=== PATIENT | female | born 1970 | race Caucasian/White ===

== ENCOUNTER 2020-02-03 07:17 | Emergency (ER) | payer OTHER ==
[2020-02-03] MEDS ORDERED: PROMETHAZINE INJ 25 MG/ML AMP ONE (07:50)
[2020-02-03] MEDS ORDERED: PANTOPRAZOLE 40 MG INJ ONE (07:50)
[2020-02-03 08:28] LABS: Absolute Lymphocytes (CBC) 2.6 K/uL (0.7-4.9); Basophils % 0.4 % (0-1.3); Hematocrit 46.8 % (36.0-45.0); Lymphocytes % 28.5 % (15.3-44.8); MPV 10.1 fL (7.6-11.3); Protime INR 1.03; RBC Red Blood Cell Count 5.32 M/uL (3.86-4.86)
[2020-02-03 08:38] LABS: ALT/SGPT 25 U/L (12-78); AST/SGOT 20 U/L (15-37); Albumin 3.5 g/dL (3.4-5.0); Alkaline Phosphatase 92 U/L (45-117); BUN Blood Urea Nitrogen 6 mg/dL (7-18); Bicarbonate 27 mmol/L (21-32); Bilirubin Direct 0.2 mg/dL (0-0.2); Bilirubin Total 0.7 mg/dL (0.2-1.0); Glucose Level 80 mg/dL (74-106); Lipase 99 U/L (73-393); Potassium 3.6 mmol/L (3.5-5.1); Protein, Total 6.9 g/dL (6.4-8.2); Sodium Level 141 mmol/L (136-145)
[2020-02-03] MEDS ORDERED: MEPERIDINE HCL 25 MG/ML SYR ONE ×2 (08:40→11:49)
[2020-02-03] MEDS ORDERED: PANTOPRAZOLE INJ 80 MG in NA CHLORIDE 0.9% 250 ML IV SCH (09:00)
--- NOTE | 2020-02-03 09:54 | RAD REPORT ---
EXAM DESCRIPTION: CT - Abdomen Pelvis W Contrast - 02/03/2020 9:17 am CLINICAL HISTORY: ABD PAIN COMPARISON: No comparisons TECHNIQUE: Biphasic, helical CT imaging of the abdomen and pelvis was performed following 100 ml non -ionic IV contrast. No oral contrast. All CT scans are performed using dose optimization technique as appropriate and may include automated exposure control or mA/KV adjustment according to patient size. FINDINGS: No suspicious findings in the lung bases. The liver, spleen, and pancreas show no suspicious findings. Gallbladder is absent. Biliary tree is m ildly dilated, not outside the range for a post cholecystectomy patient. Duct stones can be occult. C orrelation can be made with any biliary obstructive clinical or laboratory findings. Symmetric renal function is seen with no hydronephrosis or suspicious renal mass. No pyelonephritis o r acute parenchymal process. No bladder abnormalities. No adrenal abnormalities. No dilation of the stomach. No mass or wall thickening of the stomach confirmed. There is dilatation and tortuosity of the jejunum loops fold superiorly for the gastric bypass anastomosis. Loops extend through eventration or herniation at the anterior midline diaphragm. There is a 2 centimeter air and fluid collection in the proximal portion of the jejunal limb of the bypass. Small collection is suspi cious for contained perforated ulcer. The proximal jejunal loops show wall thickening and edema. Ther e is stranding in the adjacent fat. No distant free air. No pneumatosis. A small periumbilical hernia is present containing only fat. Small amount of free fluid is present in the dependent portion of the pelvis. Numerous surgical clips are present in the adnexa. Small uter us or uterine remnant identified. No acute colon finding identifiable. No suspicious bony findings. Advanced for age degenerative change in the lower lumbar spine noted. IMPRESSION: Suspected contained perforated ulcer of the proximal portion of the jejunal limb of the gastric bypass. Multiple loops of the bypass limb show wall thickening and edema. No abscess or distant free air. Status post cholecystectomy with biliary tree dilatation. The dilatation is within range normal for a post cholecystectomy patient.
--- NOTE | 2020-02-03 10:25 | EDPHYS ---
Physician Documentation [facility] Name: Carolyn Motley Age: 50 yrs Sex: Female : 1970 Arrival Date: 02/03/2020 Time: 07:19 Bed 20 Private MD: ED Physician Troy Villagomez HPI: 02/02 07:33 This 50 yrs old Female presents to ER via EMS with complaints of Abdominal rn Pain, vomiting dark blood. 07:33 The patient presents to the emergency department vomiting blood, a small amount, coffee rn grounds in nature, with multiple such episodes. Onset: The symptoms/episode began/occurred last night. Abdominal pain: described as achy, crampy, located in the epigastric area, that does not radiate. Modifying factors: The symptoms are alleviated by nothing, the symptoms are aggravated by movement, pressure. Associated signs and symptoms: Pertinent positives: vomiting, Pertinent negatives: dizziness at rest, dizziness when standing, fever, shortness of breath. Severity of symptoms: At their worst the symptoms were moderate in the emergency department the symptoms are unchanged. The patient has experienced similar episodes in the past. The patient has not recently seen a physician. 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 - Social history:: Smoking status: Patient reports the use of cigarette tobacco products, smokes one-half pack cigarettes per day. - Family history:: not pertinent. - Hospitalizations: : No recent hospitalization is reported. ROS: 07:33 Constitutional: Negative for fever, chills, and weight loss, Eyes: Negative for injury, rn pain, redness, and discharge, Neck: Negative for injury, pain, and swelling, Cardiovascular: Negative for chest pain, palpitations, and edema, Respiratory: Negative for shortness of breath, cough, wheezing, and pleuritic chest pain, Abdomen/GI: + epigastric abd pain and nausea/vomiting Back: Negative for injury and pain, : Negative for injury, bleeding, discharge, and swelling, MS/Extremity: Negative for injury and deformity, Skin: Negative for injury, rash, and discoloration, Neuro: Negative for headache, weakness, numbness, tingling, and seizure. Exam: 07:33 Constitutional: This is a well developed, well nourished patient who is awake, alert, rn and in no acute distress. + attempting to vomit into emesis bag. Head/Face: Normocephalic, atraumatic. ENT: MMM Cardiovascular: Regular rate and rhythm. No pulse deficits. Respiratory: No increased work of breathing, no retractions or nasal flaring. Abdomen/GI: soft, + tender epigastrium, no rebound or peritoneal signs Skin: Warm, dry MS/ Extremity: Pulses equal, no cyanosis. Neuro: Awake and alert, GCS 15 Vital Signs: 07:19 BP 131 / 105; Pulse 82; Resp 17; Temp 98.5; Pulse Ox 100% ; Weight 62.6 kg; Height 5 iw ft. 3 in. (160.02 cm); Pain 10/10; 08:15 BP 136 / 93; Pulse 69; Resp 16; Pulse Ox 99% ; rb3 09:15 BP 116 / 85; Pulse 68; Resp 17; Pulse Ox 99% ; rb3 10:15 BP 123 / 81; Pulse 73; Resp 17; Pulse Ox 100% ; rb3 11:15 BP 117 / 80; Pulse 66; Resp 17; Pulse Ox 99% ; rb3 12:15 BP 129 / 86; Pulse 86; Resp 16; Pulse Ox 100% ; rb3 07:19 Body Mass Index 24.45 (62.60 kg, 160.02 cm) iw MDM: 07:20 Patient medically screened. rn 09:57 ED course: Consulted with Dr. barrera, requests transfer to [place] given gastric rn bypass, and hematemesis that will also require GI which we do not have. Pt stable. Abx ordered, NPO.. 10:23 Differential diagnosis: gastritis, perforated gastric ulcer, UGIB, hematemesis. Data rn reviewed: vital signs, nurses notes, lab test result(s), radiologic studies, CT scan, and as a result, I will admit patient. Counseling: I had a detailed discussion with the patient and/or guardian regarding: the historical points, exam findings, and any diagnostic results supporting the discharge/admit diagnosis, lab results, radiology results, the need to transfer to another facility, for higher level of care, [facility] does not immediately have the required specialist. Response to treatment: the patient's symptoms have mildly improved after treatment, and as a result, I will admit patient. ED course: Accepted for transfer to [facility] for GI and surgical evaluation of contained perforated gastric ulcer involving gastric bypass. . 02/02 07:31 Order name: Basic Metabolic Panel; Complete Time: 08:39 rn 02/02 07:31 Order name: CBC with Diff; Complete Time: 08:39 rn 02/02 07:31 Order name: Hepatic Function; Complete Time: 08:39 rn 02/02 07:31 Order name: Lipase; Complete Time: 08:39 rn 02/02 07:31 Order name: Protime (+inr); Complete Time: 08:39 rn 02/02 07:31 Order name: Ptt, Activated; Complete Time: 08:39 rn 02/02 07:31 Order name: IV Saline Lock; Complete Time: 07:33 rn 02/02 07:31 Order name: Labs collected and sent; Complete Time: 07:33 rn 02/02 07:31 Order name: CT Abd/Pelvis - IV Contrast Only; Complete Time: 09:56 rn 02/02 10:16 Order name: NPO; Complete Time: 10:36 rn Administered Medications: 07:40 Drug: ProTONIX 40 mg Route: IVP; Site: right forearm; rb3 07:55 Follow up: Response: No adverse reaction rb3 07:40 Drug: Phenergan 12.5 mg Route: IVP; Site: right forearm; rb3 07:55 Follow up: Response: No adverse reaction rb3 08:30 Drug: Demerol 25 mg Route: IVP; Site: right forearm; rb3 08:45 Follow up: Response: No adverse reaction; Pain is decreased rb3 09:04 Drug: ProTONIX 8 mg/hr Route: IV; Rate: 25 ml/hr; Site: right forearm; rb3 10:35 Drug: Zosyn 3.375 grams Route: IVPB; Infused Over: 60 mins; Site: right antecubital; rb3 11:35 Follow up: IV Status: Completed infusion iw Disposition: 02/03/20 10:25 Transfer ordered to [facility]. Diagnosis are Chronic or unspecified gastric ulcer with perforation, Chronic or unspecified gastric ulcer with hemorrhage. - Reason for transfer: Higher level of care. - Accepting physician is Dr. Hollingsworth. - Condition is Stable. - Problem is new. - Symptoms have improved. Signatures: Dispatcher [employer] EDAmanda Mckay RN RN Troy Marie MD MD rn Botello, Elizabeth eb Barber, Rebecca RN RN rb3 Corrections: (The following items were deleted from the chart) 10:43 10:25 02/03/2020 10:25 Transfer ordered to [facility]. eb Diagnosis is Chronic or unspecified gastric ulcer with perforation; Chronic or unspecified gastric ulcer with hemorrhage. Reason for transfer: Higher level of care. Accepting physician is . Condition is Stable. Problem is new. Symptoms have improved. rn 12:21 10:43 02/03/2020 10:25 Transfer ordered to [facility]. rb3 Diagnosis is Chronic or unspecified gastric ulcer with perforation; Chronic or unspecified gastric ulcer with hemorrhage. Reason for transfer: Higher level of care. Accepting physician is Dr. Hollingsworth. Condition is Stable. Problem is new. Symptoms have improved. eb
--- NOTE | 2020-02-03 10:25 | ER ---
Nurse's Notes [facility] Name: Carolyn Motley Age: 50 yrs Sex: Female : 1970 Arrival Date: 02/03/2020 Time: 07:19 Bed 20 Private MD: Diagnosis: Chronic or unspecified gastric ulcer with perforation;Chronic or unspecified gastric ulcer with hemorrhage Presentation: 02/02 07:19 Chief complaint: EMS states: Pt. c/o abdominal pain, vomiting blood. Had a gastric rb3 bypass done in the past and got an ulcer and had to have a couple revisions. BP 148/90, P 86, O2 98%, R 16. Coronavirus screen: nausea, vomiting. Ebola Screen: Patient denies travel to an Ebola-affected area in the 21 days before illness onset. 07:19 Method Of Arrival: EMS: [facility] rb3 07:19 Initial Sepsis Screen: Does the patient meet any 2 criteria? No. Patient's initial iw sepsis screen is negative. Does the patient have a suspected source of infection? Yes: Acute abdominal pain. Risk Assessment: Do you want to hurt yourself or someone else? Patient reports no desire to harm self or others. Onset of symptoms was February 03, 2020. 07:19 Acuity: MED 3 iw Triage Assessment: 07:19 General: Appears uncomfortable, Behavior is calm, cooperative, Denies fever. Pain: iw Complains of pain in left upper quadrant Pain currently is 10 out of 10 on a pain scale. Pain began last night. Neuro: Level of Consciousness is awake, alert, obeys commands, Oriented to person, place, time, situation. Cardiovascular: Patient's skin is warm and dry. Respiratory: Airway is patent Respiratory effort is even, unlabored, Respiratory pattern is regular, symmetrical. GI: Reports nausea, vomiting, since last ngiht. : No signs and/or symptoms were reported regarding the genitourinary system. 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 - Social history:: Smoking status: Patient reports the use of cigarette tobacco products, smokes one-half pack cigarettes per day. - Family history:: not pertinent. - Hospitalizations: : No recent hospitalization is reported. Screenin:19 Abuse screen: Denies threats or abuse. Nutritional screening: No deficits noted. rb3 Tuberculosis screening: No symptoms or risk factors identified. Fall Risk None identified. Assessment: 07:19 General: See triage assessment. rb3 07:19 GI: Abd is soft Abdomen is tender to palpation in left upper quadrant. rb3 08:18 Reassessment: Called pharmacy to check on status for the Protonix drip. They have not rb3 mixed it yet but know that it is still needed. 09:15 Reassessment: Patient appears in no apparent distress at this time. Patient and/or rb3 family updated on plan of care and expected duration. Pain level reassessed. Patient is alert, oriented x 3, equal unlabored respirations, skin warm/dry/pink. Patient states feeling better. 10:15 Reassessment: Patient appears in no apparent distress at this time. No changes from rb3 previously documented assessment. 10:28 Reassessment: Pt. was asked to not drink or eat anything due to not knowing what the [facility] transfer facility had planned once she arrived there. Pt verbalized understanding. 10:50 Reassessment: Tried to call report, unable to give report at this time. They aren't rb3 sure who is taking the pt. and they will call me back. 11:06 Reassessment: Gave report to Quinn Echavarria at [facility]. Information from the [facility] was rb3 given, all questions asked and answered. 12:00 Reassessment: Patient appears in no apparent distress at this time. Patient and/or rb3 family updated on plan of care and expected duration. Pain level reassessed. Patient is alert, oriented x 3, equal unlabored respirations, skin warm/dry/pink. 12:15 Reassessment: Gave report to EMS. Information from the [facility] was given. All questions rb3 asked and answered. Vital Signs: 07:19 BP 131 / 105; Pulse 82; Resp 17; Temp 98.5; Pulse Ox 100% ; Weight 62.6 kg; Height 5 iw ft. 3 in. (160.02 cm); Pain 10/10; 08:15 BP 136 / 93; Pulse 69; Resp 16; Pulse Ox 99% ; rb3 09:15 BP 116 / 85; Pulse 68; Resp 17; Pulse Ox 99% ; rb3 10:15 BP 123 / 81; Pulse 73; Resp 17; Pulse Ox 100% ; rb3 11:15 BP 117 / 80; Pulse 66; Resp 17; Pulse Ox 99% ; rb3 12:15 BP 129 / 86; Pulse 86; Resp 16; Pulse Ox 100% ; rb3 07:19 Body Mass Index 24.45 (62.60 kg, 160.02 cm) iw ED Course: 07:19 Patient arrived in ED. rb3 07:19 Arm band placed on left wrist. iw 07:19 Patient has correct armband on for positive identification. Bed in low position. Call rb3 light in reach. Side rails up X 1. Pulse ox on. NIBP on. Warm blanket given. Pillow given. 07:20 Troy Villagomez MD is Attending Physician. rn 07:23 Inserted saline lock: 20 gauge in right forearm, using aseptic technique. Blood ds4 collected. 07:27 Amanda Parks, QUINN is Primary Nurse. iw 07:29 Triage completed. iw 09:18 CT Abd/Pelvis - IV Contrast Only In Process Unspecified. EDMS 10:06 initiated a transfer with Georgina from the [facility] Transfer [facility]. eb 10:20 connected the general surgeon aeronautical engineer for [facility] with Dr. Villagomez for patient eb transfer consultation. 10:31 connected the bariatric surgeon aeronautical engineer for [facility] with Dr. Villagomez for patient eb transfer consultation. 10:34 Inserted saline lock: 22 gauge in right antecubital area, using aseptic technique. rb3 10:[address] Hollingsworth the hospitalist aeronautical engineer for [facility] with Dr. Villagomez for eb patient transfer consultation. 10:43 administrative approval given by Georgina Weiss Rn/ patient has been accepted to [facility] bed 1555/ Dr. Hollingsworth has accepted the patient in transfer/ report to be called to the transfer center at [phone]. 12:20 No provider procedures requiring assistance completed. Patient transferred, IV remains rb3 in place. Administered Medications: 07:40 Drug: ProTONIX 40 mg Route: IVP; Site: right forearm; rb3 07:55 Follow up: Response: No adverse reaction rb3 07:40 Drug: Phenergan 12.5 mg Route: IVP; Site: right forearm; rb3 07:55 Follow up: Response: No adverse reaction rb3 08:30 Drug: Demerol 25 mg Route: IVP; Site: right forearm; rb3 08:45 Follow up: Response: No adverse reaction; Pain is decreased rb3 09:04 Drug: ProTONIX 8 mg/hr Route: IV; Rate: 25 ml/hr; Site: right forearm; rb3 10:35 Drug: Zosyn 3.375 grams Route: IVPB; Infused Over: 60 mins; Site: right antecubital; rb3 11:35 Follow up: IV Status: Completed infusion iw Outcome: 10:25 ER care complete, transfer ordered by . rn 12:20 Transferred by ground EMS to [facility], Transfer form completed. rb3 12:20 Condition: stable 12:20 Instructed on the need for transfer. 12:21 Patient left the ED. rb3 Signatures: Dispatcher [employer] Amanda Ellison RN RN iw Nieto, Roman, MD MD rn Swanson, Donovan ds4 Savannah Alvarez Rebecca, RN RN rb3
[2020-02-03] MEDS ORDERED: PIPER/TAZO/NS 3.375gm 3.375 GM/100 ML BAG ONE (10:31)
[2020-02-03 13:43] VITALS: TEMP 98.5
[2020-02-03 13:56] VITALS: BP 129/86; O2SAT 100
== END 2020-02-03 12:21 | disposition short-term general hospital (02) ==
LOC: ER 07:17
DX: K25.6 Chronic or unspecified gastric ulcer with both hemorrhage and perforation (principal); F17.210 Nicotine dependence, cigarettes, uncomplicated; E11.9 Type 2 diabetes mellitus without complications; I25.2 Old myocardial infarction; Z86.73 Personal history of transient ischemic attack (TIA), and cerebral infarction without residual deficits; Z88.5 Allergy status to narcotic agent; Z88.6 Allergy status to analgesic agent; Z98.84 Bariatric surgery status
CPT/HCPCS: 96365; 85025; 80048; 36415; 85610; 80076; 85730; 83690; 74177; 96375; 99285; Q9967; J2550; C9113 ×2; J2543; J2175 ×2; J7050

== ENCOUNTER 2020-10-24 22:13 | Observation (INO) | payer OTHER ==
--- OUTSIDE RECORDS SUMMARY | 2020-10-24 22:17 | XMS REPORT | Continuity of Care Document ---
:1970 Author Organization [facility] t Address [address] [place] [address] Care Team Providers Name Role Phone Kvng MELÉNDEZ Attending Clinician Merchant MELÉNDEZ Attending Clinician KVNG Attending Clinician Unavailable Admitting Clinician Unavailable Payers Payer Name Policy Type Policy Effective Date Expiration Date Sour ce Number [facility] [id number] [facility] [place] -Presen t Problems Condition Condition Condition Status Onset Resolution Last Treating Co mments Source Name Details Category Date Date Treatment Clinician Date H/O H/O Disease Active 2019-[address] [facility] gastric gastric 2- [facility] - bypass bypass 00:00: Medical 00 [place] Marginal Marginal Disease Active 2019-03 [facility] - [facility]: Medical 00 [place] Tobacco Tobacco Disease Active 2019-[address] [facility] use use 2- [facility] - 00:[facility]: Medical 00 [place] GI bleed GI bleed Disease Active 2019-03 [facility] Allergies, Adverse Reactions, Alerts Allergy Allergy Status Severity Reaction(s) Onset Inactive Treating Comm ents Source Name Type Date Date Clinician No Known DA Active U [facility] Contrast 11-28 [facility] 00:00: Cristina s [facility] No Known DA Active U [facility] Drug 11-28 [place] Allergie 00:00: Cristina s [facility] No Known DA Active U [facility] Food 11-28 [facility] Allergie 00:00: [facility] No Known DA Active U [facility] Other 11-28 [facility] Allergie 00:00: Cristina s [facility] Family History Family Member Diagnosis Comments Start Date Stop Date Source Natural father Heart attack [facility] Paternal grandmother Heart attack [facility] Natural sister Heart attack [facility] Social History Social Habit Start Date Stop Date Quantity Comments Source Sex Assigned At [facility] Cigarettes smoked 2020-02-03 2020-02-03 [facility] - current (pack per 00:00:00 00:00:00 [facility] Center day) - Reported Tobacco use and 2020-02-03 2020-02-03 Never used [facility] - exposure 00:00:00 00:00:00 [facility] Alcohol intake 2020-02-03 2020-02-[address] Ex-[address] [facility] es - 00:00:00 00:00:00 (finding) [facility] Smoking Status Start Date Stop Date Source Current every day smoker 2020-02-03 00:00:00 [facility] Medications Ordered Filled Start Stop Current Ordering Indication Dosage Frequency Signature Comments Components Source Medication Medication Date Date Medication? Clinician (SIG) Name Name pantoprazol 2019-03 Yes 40mg Q.5D Take [address] [facility] 2-01 tablet (40 [facility] - (PROTONIX) 00:00: mg total) Me dical 40 MG 00 by mouth 2 Center tablet (two) times daily. sucralfate 2019-03- No 1g Take [address] (CARAFATE) 2-01 12-31 mLs (1 g Luke s - 100 mg/mL 00:00: 23:59 total) by Me dical suspension 00 :00 mouth Center every 6 (six) hours for 30 days. HYDROcodone 2019-03- No 1{tbl} Take [address] -acetaminop 04-07 tablet by Myrna pagan (NORCO 00:00: 23:59 mouth Medic al 10-325) 00 :00 every 4 Center 10-325 mg (four) per tablet hours as needed for up to 10 days. Max Daily Amount: 6 tablets ondansetron 2019-03- No 4mg Take [address] [facility] [address] (ZOFRAN-ODT 04-07 tablet (4 Myrna brooklynn - ) 4 MG 00:00: 23:59 mg total) Medic al disintegrat 00 :00 by mouth Cent er ing tablet every 8 (eight) hours as needed for up to 7 days. Vital Signs Vital Name Observation Time Observation Value Comments Source Systolic blood 2020-02-05 07:50:00 106 mm[Hg] [facility] Diastolic blood 2020-02-05 07:50:00 64 mm[Hg] [facility] Heart rate 2020-02-05 07:50:00 61 /min [facility] Body temperature 2020-02-05 07:50:00 35.56 Tamiko [facility] Respiratory rate 2020-02-05 07:50:00 18 /min [facility] Oxygen saturation in 2020-02-05 07:50:00 100 /min [facility] Arterial blood by Medical Ce nter Pulse oximetry Body height 2020-02-03 14:00:00 160 cm [facility] Body weight 2020-02-03 14:00:00 62.596 kg [facility] BMI 2020-02-03 14:00:00 24.45 kg/m2 [facility] Procedures Procedure Date / Time Performed Performing Clinician Alejandrina e POCT-GLUCOSE METER 2020-02-05 11:37:00 Santy Grey [facility] POCT-GLUCOSE METER 2020-02-05 07:53:00 Merchant Santy [facility] PROTHROMBIN TIME/INR 2020-02-05 04:38:00 [facility] CBC W/PLT COUNT & AUTO 2020-02-05 04:38:00 Merchant, [facility] BASIC METABOLIC PANEL 2020-02-05 04:38:00 [facility], [facility] () [facility] POCT-GLUCOSE METER 2020-02-04 20:51:00 [facility], [facility] POCT-GLUCOSE METER 2020-02-04 16:10:00 [facility], [facility] POCT-GLUCOSE METER 2020-02-04 11:42:00 [facility], [facility] 2D ECHO W/ DOPPLER 2020-02-04 09:26:00 [facility], [facility] (CW/PW/COLOR) [facility] POCT-GLUCOSE METER 2020-02-04 08:54:00 [facility], [facility] POCT-GLUCOSE METER 2020-02-04 05:33:00 [facility], [facility] CBC W/PLT COUNT & AUTO 2020-02-04 04:13:00 [facility], [facility] BASIC METABOLIC PANEL 2020-02-04 04:13:00 [facility], [facility] () [facility] PROTHROMBIN TIME/INR 2020-02-04 04:13:00 [facility], [facility] POCT-GLUCOSE METER 2020-02-03 22:13:00 [facility] POCT-GLUCOSE METER 2020-02-03 17:30:00 [facility], [facility] ABORH, MANUAL 2020-02-03 16:52:00 Mago Puga [facility] SARS-COV2/RT-PCR ([facility] & 2020-02-03 16:48:00 [facility], [facility] REF LABS) [facility] CBC W/PLT COUNT & AUTO 2020-02-03 15:28:00 [facility], [facility] BASIC METABOLIC PANEL 2020-02-03 15:28:00 [facility], [facility] () [facility] PROTHROMBIN TIME/INR 2020-02-03 15:28:00 Santy Grey [facility] TYPE AND SCREEN, 2020-02-03 15:28:00 [facility] Plan of Care Planned Activity Planned Date Details Comments Source Future Scheduled 2019-11-[address] [facility] - Test 00:00:00 (#1) [code = [facility] INFLUENZA VACCINE (#1)] Future Scheduled 2019-03-[address] [facility] - Test 00:00:00 (12+) [code = [facility] DEPRESSION SCREENING (12+)] Future Scheduled 2016-01-14 [facility]00 (procedure) [code = [facility] [id number]] Future Scheduled 1992-01-14 Screening for [facility] Stacey es - Test 00:00:00 malignant neoplasm of Medica l Center cervix (procedure) [code = 059093931] Results Test Description Test Time Test Comments Results Result Comments Source POC-Glucose meter 2020-02-05 11:50:00 Test Item Value Reference Range Interpretation Comme nts POC-Glucose Meter (test code = 96 mg/dL 70-110 : TESTED AT [facility] [address] [address]) [facility], [facility] 30: Automotive Service Technician/Techni nory ID = [id number] for Joanna Arrieta Lab Interpretation (test code = Normal 15069-1) [facility] [id number] 11:50:00 Test Item Value Reference Range Interpretation Comments POC-GLUCOSE METER 96 mg/dL 70-110 : TESTED A T [facility] [address] (BEAKER) ([facility] = [facility], 1538) [address]: Automotive Service Technician/Techni nory ID = [id number] for Tam davis Joanna POCT-GLUCOSE [id number] 08:04:00 Test Item Value Reference Range Interpretation Comments POC-GLUCOSE METER 93 mg/dL 70-110 : TESTED A T [facility] [address] (BEAKER) (test code = [facility] R [facility], 1538) [address]: Automotive Service Technician/Techni nory ID = [id number] for Tam davis Joanna Basic metabolic [id number] 05:59:00 Test Item Value Reference Range Interpretation Comments Sodium (test code = 143 meq/L 793-630 8138-2) Potassium (test code = 3.6 meq/L 3.5-5.1 2823-3) Chloride (test code = 109 meq/L 98-107 H 2075-0) CO2 (test code = 28 meq/L 22-29 2028-9) BUN (test code = 4 mg/dL 7-21 L 3094-0) Creatinine (test code 0.67 mg/dL 0.57-1.25 = 2160-0) Glucose (test code = 102 mg/dL 70-105 2345-7) Calcium (test code = 8.0 mg/dL 8.4-10.2 L 98920-1) EGFR (test code = 94 mL/min/1.73 [place] [address]-9) NOT ACCURATE CREATININE CLEARANCE IN PREDICTING GLOMERULAR FILTRATION RATE . ESTIMATED GFR I S NOT APPLICABLE FOR DIALYSIS PATIENTS. XOCHITL (test code = XOCHILT) Automotive Service Technician ID - [id number] Lab Interpretation Abnormal (test code = 72021-3) [facility] METABOLIC [id number] 05:59:00 Test Item Value Reference Range Interpretation Comments SODIUM (BEAKER) 143 meq/L 136-145 (test code = 381) POTASSIUM (BEAKER) 3.6 meq/L 3.5-5.1 (test code = 379) CHLORIDE (BEAKER) 109 meq/L 98-107 H (test code = 382) CO2 (BEAKER) (test 28 meq/L 22-29 code = 355) BLOOD UREA NITROGEN 4 mg/dL 7-21 L (BEAKER) (test code = 354) CREATININE (BEAKER) 0.67 mg/dL 0.57-1.25 (test code = 358) GLUCOSE RANDOM 102 mg/dL 70-105 (BEAKER) (test code = 652) CALCIUM (BEAKER) 8.0 mg/dL 8.4-10.2 L (test code = 697) EGFR (BEAKER) (test 94 mL/min/1.73 ESTIMA MAIKEL GFR IS code = 1092) sq m NOT ACCURATE CREATININE CLEARANCE IN PREDICTING GLOMERULAR FILTRATION RATE . ESTIMATED GFR I S NOT APPLICABLE FOR DIALYSIS PATIEN TS. Automotive Service Technician ID - EDASIProthrombin time/[id number] 05:29:00 Test Item Value Reference Interpretation Comments Range Protime (test code = 14.3 See_Comment H [Autom ated 5902-2) message] The system which generated this result transmitted reference range : 11.9 - 14.2 seconds. The reference range was not used to interpret this result as normal/abnormal . INR (test code = 1.14 See_Comment [Automated 6301-6) message] The system which generated this result transmitted reference range : <=5.90. The reference range was not used to interpret this result as normal/abnormal . XOCHITL (test code = Effective 08/02/2018: XOCHITL) PT Reference Range ChangeNew: 11.9-14.2 Previous: 11.7-14.7 RECOMMENDED COUMADIN/WARFARIN INR THERAPY RANGESSTANDARD DOSE: 2.0-3.0 Includes: PROPHYLAXIS for venous thrombosis, systemic embolization; TREATMENT for venous thrombosis and/or pulmonary embolus.HIGH RISK: Target INR is 2.5-3.5 for patients wiht mechanical heart valves. Lab Interpretation Abnormal (test code = 88077-6) [facility]/[id number] 05:29:00 Test Item Value Reference Range Interpretation Comments PROTIME (BEAKER) (test code = 14.3 seconds 11.9-14.2 H 759) INR (BEAKER) (test code = 370) 1.14 <=5.90 Effective 08/02/2018: PT Reference Range ChangeNew: 11.9-14.2 Previous: 11.7- 14.7RECOMMENDED COUMADIN/WARFARIN INR THERAPY RANGESSTANDARD DOSE: 2.0-3.0 Includes: PROPHYLAXIS for venous thrombosis, systemic embolization; TREATMENT for venous thrombosis and/or pulmonary embolus.HIGH RISK: Target INR is2.5-3.5 for patients wiht mechanical heart valves.CBC with platelet count + automated [id number] 05:28:00 Test Item Value Reference Range Interpretation Comments WBC (test code = 6690-2) 6.9 See_Comment [A utomated message] The system [employer] generated this result transmitted ref erence range: 3.5 - 10 .5 K/L. The refe rence range was not u sed to interpret this result as normal/abnor mal. RBC (test code = 789-8) 4.03 See_Comment [Au tomated message] The system [employer] generated this result transmitted ref erence range: 3.93 - 5 .22 M/L. The refe rence range was not u sed to interpret this result as normal/abnor mal. MCHC (test code = 786-4) 32.0 See_Comment L [A utomated message] The system [employer] generated this result transmitted ref erence range: 32.2 - 3 5.5 GM/DL. The refe rence range was not u sed to interpret this result as normal/abnor mal. Hematocrit (test code = 37.5 % 34.1-44.9 4544-3) MCV (test code = 787-2) 93.1 fL 79.4-94.8 MCH (test code = 785-6) 29.8 pg 25.6-32.2 RDW (test code = 788-0) 13.1 % 11.7-14.4 Platelets (test code = 146 See_Comment L [Aut omated message] 777-3) The system [employer] generated this result transmitted ref erence range: 150 - 45 0 K/CU MM. The referen ce range was not u sed to interpret this result as normal/abnor mal. MPV (test code = 11.9 fL 9.4-12.3 63631-4) nRBC (test code = 413) 0 See_Comment [Aut omated message] The system [employer] generated this result transmitted ref erence range: 0 - 0 /1 00 WBC. The refere nce range was not u sed to interpret this result as normal/abnor mal. % Neutros (test code = 51 % 429) % Lymphs (test code = 33 % 430) % Monos (test code = 11 % 431) % Eos (test code = 432) 4 % % Baso (test code = 437) 1 % # Neutros (test code = 3.51 See_Comment [Aut omated message] 670) The system [employer] generated this result transmitted ref erence range: 1.56 - 6 .13 K/L. The refe rence range was not u sed to interpret this result as normal/abnor mal. # Lymphs (test code = 2.28 See_Comment [Auto mated message] 414) The system [employer] generated this result transmitted ref erence range: 1.18 - 3 .74 K/L. The refe rence range was not u sed to interpret this result as normal/abnor mal. # Monos (test code = 0.73 See_Comment H [Autom ated message] 415) The system [employer] generated this result transmitted ref erence range: 0.24 - 0 .36 K/L. The refe rence range was not u sed to interpret this result as normal/abnor mal. # Eos (test code = 416) 0.28 See_Comment [Au tomated message] The system [employer] generated this result transmitted ref erence range: 0.04 - 0 .36 K/L. The refe rence range was not u sed to interpret this result as normal/abnor mal. # Baso (test code = 417) 0.04 See_Comment [A utomated message] The system [employer] generated this result transmitted ref erence range: 0.01 - 0 .08 K/L. The refe rence range was not u sed to interpret this result as normal/abnor mal. Immature 0 % 0-1 Granulocytes-Relative (test code = 2801) Lab Interpretation (test Abnormal code = 22411-7) [facility] W/PLT COUNT & AUTO [id number] 05:28:00 Test Item Value Reference Range Interpretation Comments WHITE BLOOD CELL COUNT (BEAKER) 6.9 K/ L 3.5-10.5 (test code = 775) RED BLOOD CELL COUNT (BEAKER) 4.03 M/ L 3.93-5.22 (test code = 761) HEMOGLOBIN (BEAKER) (test code = 12.0 GM/DL 11.2-15.7 410) HEMATOCRIT (BEAKER) (test code = 37.5 % 34.1-44.9 411) MEAN CORPUSCULAR VOLUME (BEAKER) 93.1 fL 79.4-94.8 (test code = 753) MEAN CORPUSCULAR HEMOGLOBIN 29.8 pg 25.6-32.2 (BEAKER) (test code = 751) MEAN CORPUSCULAR HEMOGLOBIN CONC 32.0 GM/DL 32.2-35.5 L (BEAKER) (test code = 752) RED CELL DISTRIBUTION WIDTH 13.1 % 11.7-14.4 (BEAKER) (test code = 412) PLATELET COUNT (BEAKER) (test 146 K/CU MM 150-450 L code = 756) MEAN PLATELET VOLUME (BEAKER) 11.9 fL 9.4-12.3 (test code = 754) NUCLEATED RED BLOOD CELLS 0 /100 WBC 0-0 (BEAKER) (test code = 413) NEUTROPHILS RELATIVE PERCENT 51 % (BEAKER) (test code = 429) LYMPHOCYTES RELATIVE PERCENT 33 % (BEAKER) (test code = 430) MONOCYTES RELATIVE PERCENT 11 % (BEAKER) (test code = 431) EOSINOPHILS RELATIVE PERCENT 4 % (BEAKER) (test code = 432) BASOPHILS RELATIVE PERCENT 1 % (BEAKER) (test code = 437) NEUTROPHILS ABSOLUTE COUNT 3.51 K/ L 1.56-6.13 (BEAKER) (test code = 670) LYMPHOCYTES ABSOLUTE COUNT 2.28 K/ L 1.18-3.74 (BEAKER) (test code = 414) MONOCYTES ABSOLUTE COUNT (BEAKER) 0.73 K/ L 0.24-0.36 H (test code = 415) EOSINOPHILS ABSOLUTE COUNT 0.28 K/ L 0.04-0.36 (BEAKER) (test code = 416) BASOPHILS ABSOLUTE COUNT (BEAKER) 0.04 K/ L 0.01-0.08 (test code = 417) IMMATURE GRANULOCYTES-RELATIVE 0 % 0-1 PERCENT (BEAKER) (test code = 2801) POCT-GLUCOSE [id number] 21:03:00 Test Item Value Reference Range Interpretation Comments POC-GLUCOSE METER 78 mg/dL 70-110 : TESTED A T [facility] (BEAKER) (test code = [facility], 1538) [address]: Automotive Service Technician/Techni nory ID = [id number] for ISAAC LAWLER POCT-GLUCOSE [id number] 16:22:00 Test Item Value Reference Range Interpretation Comments POC-GLUCOSE METER 142 mg/dL 70-110 H : TESTED A T [facility] 67[address] (BEAKER) (test code = [facility], 153) [address]: Automotive Service Technician/Techni nory ID = [id number] for ALICIA OSORIO 2D Echo W/Doppler(CW/PW/Color)2020-02-04 15:37:04Ejection FractionSLEH ECHO HEARTLAB MKCKESSON CPACSInterface, External Ris In - 02/04/2020 3:37 PM C STTransthoracic Echocardiography Report (TTE) Demographics Patient Name ARLENE RODRÍGUEZ Date of Study 02/04/2020 [place] Gender Female Visit Number [id number] Race Room Number 1555 Number Date of 1970 Referring Physician Santy Grey Age 50 year(s) 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 Amount - 2 mlHeight: 63 inches Weight: 62.6 kg (138 lbs) BSA: 1.65 m^2 BMI: 24.45 kg/m^2HR: 50 bpm BP: 100/55 mmHg Summary The left ventricle ischamber size (by vol index) is mildly enlarged (female - LVED 62-70ml/m2). All of the LV segments contract normally . Global LV systolic function normal . LVEF by Lai's method of disk assessment isnormal (60%) . Normal diastolic function. Unable to estimate peak systolic PA pressure; inadequateTR velocity signal. No pericardial effusion is visualized. Previous Study No prior exam available for comparison. Signature Findings Left Ventricle LV endocardium is adequately visualized with IV ultrasound enhancing agent. The left ventricle is chamber size (by vol index) is mildly enlarged (female - LVED 62-70ml/m2). Normal LV wall thickness. All of the LV segments contract normally . Global LV systolic function normal . LVEF by Lai's method of disk assessment is normal (60%) . Normal diastolic function. Left Atrium LA size is mildly enlarged (35-41 ml/m2) . Right Ventricle The right ventricular chamber size and systolic function are within normal limits. Right Atrium RA size is normal. Atrial Septum Normal interatrial septum by available views. Aortic Valve Normal AoV structure. Mitral Valve Mild MV leaflet thickening. Trace mitral regurgitation. Tricuspid Valve TV structure is normal. A trace of tricuspid re gurgitation. Unable to estimate peak systolic PA pressure; inadequate TR velocity signal. Pulmonic Valve Normal PV structure and function by limited views and Doppler. Aorta Aortic root size (SInus of Valsalva diameter) is normal . Pericardium No pericardial effusion is vi sualized. IVC/SVC/PA/PV/Pleural The estimated RA pressure by IVC dynamics 5-10mmHg . Chambers/Structures Left Atrium LA Volume: 57.24 ml LA Area: 17.61 cm^2 LA Vol. Index: 35 ml/m^2 Left Ventricle LVIDd: 5.1 cm LVEDV:123.98 ml LV Septum Diastolic: 1 cm LV PW Diastolic: 0.98 cm LVEDV Lai's:112.85 ml LV Length: 7.79 cm LVESV Lai's:44.56 ml LVEF Lai's: 60.5 % LVEDVI: 68 ml/m^2 LVESVI: 27 ml/m^2 LVOT Diameter: 1.99 cm Right Atrium RA Area: 11.25 cm^2 Right Ventricle RVOT VTI: 21.83 cm TAPSE: 1.9 cm Aorta Ao Root S of Petrona.: 3.07 cm Doppler/Quantitative Measurements Mitral Valve MV Peak E-Wave: 1.02 m/s MV Peak A-Wave: 0.74 m/s E/A Ratio: 1.38 Peak Gradient: 4.15 mmHg Deceleration Time: 254.6 msec MV Dixon. Peak: Tissue Doppler E' Lateral Velocity: 0.1 m/s Aortic Valve Peak Velocity: 1.2 m/s Mean Velocity: 0.83 m/s Peak Gradient: 5.78 mmHg Mean Gradient: 3.11 mmHg AV Area (continuity): 2.56 cm^2 AV VTI: 26.82 cm AV DVI: 0.82 LVOT Peak Velocity: 0.97 m/s Peak Gradient: 3.74 mmHg Mean Velocity: 0.61 m/s Mean Gradient: 1.78 mmHg LVOT Diameter: 1.99 cm LVOT VTI: 22.07 cm LVOT Area: 3.11 cm^2 LVOT SV:68.61 ml LVOT CO: 3.43 l/min LVOT CI: 2.08 l/min/m^2[facility] [id number] 11:54:00 Test Item Value Reference Range Interpretation Comments POC-GLUCOSE METER 118 mg/dL 70-110 H : TESTED A T [facility] (FLORENCEAKER) (test code = [place], 1538) [address]: Automotive Service Technician/Techni nory ID = [id number] for Da vis, Joanna SARS-CoV2/RT-PCR (Asymptomatic ONLY)2020-02-04 09:39:00 Test Item Value Reference Range Interpretation Comments SARS-COV2/RT-PCR Negative Not Detected, (test code = Negative, See 82377-3) external report for linked test SARS-COV-2 [facility] (test code = 44334-1) XOCHITL (test code = Negative result for this XOCHITL) test determines that SARS-CoV-2 RNA was not present in the specimen above the Limit of Detection (LOD). However, Negative results do not preclude SARS-CoV-2 infection and should not be used as the sole basis for treatment or patient management decisions. Negative results must be combined with clinical observations, patient history, and epidemiological information. A false negative result may occur if a specimen is improperly collected, transported or handled. A false negative result should be considered if patient's recent exposures or clinical presentation indicate that COVID-19 (SARS-CoV-2) is likely and diagnostic tests for other causes of illness are negative. Re-testing should be considered in cases of suspected false negatives. The limit of detection for this assay is 800 copies/mL. This SARS CoV-2 test is a real-time RT-PCR test intended for the qualitative detection of nucleic acid from SARS-CoV-2 in a nasopharyngeal swab specimen collected from individuals suspected of COVID-19 by their healthcare provider. This test has not been Food and Drug Administration (FDA) cleared or approved. This is a modified version of an approved Emergency Use Authorization (EUA) and is in the process of review by the FDA. Once authorized by the FDA, the issued EUA will be effective until the declaration that circumstances exist justifying the authorization of the emergency use of in vitro diagnostic tests for detection and/or diagnosis of COVID-19 is terminated under Section 564(b)(2) of the Act or the EUA is revoked under Section 564(g) of the Act. Fact Sheet for Healthcare Providers:https://www.[employer]sites/default/f sean/product/documents/F act_Sheet_HC_Providers_L zmf_JICC-DiO-6.pdf Fact Sheet for Healthcare Patients:https://www.[employer]/sites/default/fi les/product/documents/Fa ct_Sheet_Patients_Lyra_S ARS-CoV-2.pdf Performing Laboratory:[facility] [place] [address] [facility] REF LAB[facility])2020-02-04 09:39:00 Test Item Value Reference Range Interpretation Comments SARS-COV2/RT-PCR (test Negative Not Detected, Negative, code = 5179838) See external report for linked test SARS-COV-[address] [facility] (test code = 2223229) Negative result for this test determines that SARS-CoV-2 RNA was not present in the specimen above the Limit of Detection (LOD). However, Negative results do not preclude SARS-CoV-2 infection and should not be used as the sole basis for treatment or patient management decisions. Negative results mustbe combined with clinical observations, patient history, and epidemiological information. A false negative result may occur if a specimen is improperly collected, transported or handled. A false negative result should be considered if patient's recent exposures or clinical presentation indicate that COVID-19 (SARS-CoV-2) is likely and diagnostic tests for other causes of illness are negative. Re-testing should be considered in cases of suspected false negatives.The limit of detection for this assay is 800 copies/mL.This SARS CoV-2 test is a real-time RT-PCR test intended for the qualitative detection of nucleic acid from SARS-CoV-2 in a nasopharyngeal swab specimen collected from individuals susp ected of COVID-19 by their healthcare provider.This test has not been Food and Drug Administration (FDA) cleared or approved. This is a modified version of an approved Emergency Use Authorization (EUA) and is in the process of review by the FDA. Once authorized by the FDA, the issued EUA will be effective until the declaration that circumstances exist justifying the authorization of the emergency use of in vitro diagnostic tests for detection and/or diagnosis of COVID-19 is terminated under Section 564(b)(2) of the Act or the EUA is revoked under Section 564(g) of the Act.Fact Sheet for Healthcare Providers:https://www.[employer]/sites/default/files/product/documents/Fact_Shee s_NF_Xzqqtfmco_Lpqa_HAJS-FxM-0.pdfFact Sheet for Healthcare Patients:https://www.[employer]/sites/default/files/product/ documents/Lwqp_Batvw_Gyvbyaaz_Gbtg_IVEN-RaR-1.pdfPerforming Laboratory:[facility], [place] [address]HZLH-BZNKILU METER 2020-02-04 09:07:00 Test Item Value Reference Range Interpretation Comments POC-GLUCOSE METER 146 mg/dL 70-110 H : TESTED A T [facility] 6720 ([employer]ine[employer]) (test code = [facility], 1538) [address]: Automotive Service Technician/Techni nory ID = [id number] for Da vis, Joanna POCT-GLUCOSE [id number] 05:44:00 Test Item Value Reference Range Interpretation Comments POC-GLUCOSE METER 102 mg/dL 70-110 : TESTED A T [facility] 6720 ([employer]) (test code = [facility], 1538) 70[address]: Automotive Service Technician/Techni nory ID = [id number] for AN ISAAC MARTINEZ BASIC METABOLIC [id number] 05:01:00 Test Item Value Reference Range Interpretation Comments SODIUM (BEAKER) 142 meq/L 136-145 (test code = 381) POTASSIUM (BEAKER) 3.9 meq/L 3.5-5.1 (test code = 379) CHLORIDE (BEAKER) 107 meq/L 98-107 (test code = 382) CO2 (BEAKER) (test 29 meq/L 22-29 code = 355) BLOOD UREA NITROGEN 6 mg/dL 7-21 L (BEAKER) (test code = 354) CREATININE (BEAKER) 0.75 mg/dL 0.57-1.25 (test code = 358) GLUCOSE RANDOM 112 mg/dL 70-105 H (BEAKER) (test code = 652) CALCIUM (BEAKER) 8.3 mg/dL 8.4-10.2 L (test code = 697) EGFR (BEAKER) (test 82 mL/min/1.73 ESTIMA MAIKEL GFR IS code = 1092) sq m NOT ACCURATE CREATININE CLEARANCE IN PREDICTING GLOMERULAR FILTRATION RATE . ESTIMATED GFR I S NOT APPLICABLE FOR DIALYSIS PATIEN TS. Automotive Service Technician ID - EDASICBC W/PLT COUNT & AUTO [id number] 04:53:00 Test Item Value Reference Range Interpretation Comments WHITE BLOOD CELL COUNT (BEAKER) 5.6 K/ L 3.5-10.5 (test code = 775) RED BLOOD CELL COUNT (BEAKER) 4.55 M/ L 3.93-5.22 (test code = 761) HEMOGLOBIN (BEAKER) (test code = 13.3 GM/DL 11.2-15.7 410) HEMATOCRIT (BEAKER) (test code = 42.2 % 34.1-44.9 411) MEAN CORPUSCULAR VOLUME (BEAKER) 92.7 fL 79.4-94.8 (test code = 753) MEAN CORPUSCULAR HEMOGLOBIN 29.2 pg 25.6-32.2 (BEAKER) (test code = 751) MEAN CORPUSCULAR HEMOGLOBIN CONC 31.5 GM/DL 32.2-35.5 L (BEAKER) (test code = 752) RED CELL DISTRIBUTION WIDTH 13.0 % 11.7-14.4 (BEAKER) (test code = 412) PLATELET COUNT (BEAKER) (test 161 K/CU MM 150-450 code = 756) MEAN PLATELET VOLUME (BEAKER) 11.6 fL 9.4-12.3 (test code = 754) NUCLEATED RED BLOOD CELLS 0 /100 WBC 0-0 (BEAKER) (test code = 413) NEUTROPHILS RELATIVE PERCENT 38 % (BEAKER) (test code = 429) LYMPHOCYTES RELATIVE PERCENT 47 % (BEAKER) (test code = 430) MONOCYTES RELATIVE PERCENT 9 % (BEAKER) (test code = 431) EOSINOPHILS RELATIVE PERCENT 5 % (BEAKER) (test code = 432) BASOPHILS RELATIVE PERCENT 0 % (BEAKER) (test code = 437) NEUTROPHILS ABSOLUTE COUNT 2.13 K/ L 1.56-6.13 (BEAKER) (test code = 670) LYMPHOCYTES ABSOLUTE COUNT 2.61 K/ L 1.18-3.74 (BEAKER) (test code = 414) MONOCYTES ABSOLUTE COUNT (BEAKER) 0.51 K/ L 0.24-0.36 H (test code = 415) EOSINOPHILS ABSOLUTE COUNT 0.28 K/ L 0.04-0.36 (BEAKER) (test code = 416) BASOPHILS ABSOLUTE COUNT (BEAKER) 0.02 K/ L 0.01-0.08 (test code = 417) IMMATURE GRANULOCYTES-RELATIVE 0 % 0-1 PERCENT (BEAKER) (test code = 2801) PROTHROMBIN [id number] 04:40:00 Test Item Value Reference Range Interpretation Comments PROTIME (BEAKER) (test code = 15.1 seconds 11.9-14.2 H 759) INR (BEAKER) (test code = 370) 1.22 <=5.90 Effective 08/02/2018: PT Reference Range ChangeNew: 11.9-14.2 Previous: 11.7- 14.7RECOMMENDED COUMADIN/WARFARIN INR THERAPY RANGESSTANDARD DOSE: 2.0-3.0 Includes: PROPHYLAXIS for venous thrombosis, systemic embolization; TREATMENT for venous thrombosis and/or pulmonary embolus.HIGH RISK: Target INR is2.5-3.5 for patients wiht mechanical heart valves.POCT-GLUCOSE [id number] 22:25:00 Test Item Value Reference Range Interpretation Comments POC-GLUCOSE METER 109 mg/dL 70-110 : TESTED Allan Yepez [facility] [address] (BEAKER) (test code = [facility] [place] [place], 1538) [address]: Automotive Service Technician/Techni nory ID = [id number] for AN JUANISAAC POCT-GLUCOSE [id number] 17:41:00 Test Item Value Reference Range Interpretation Comments POC-GLUCOSE METER 118 mg/dL 70-110 H : TESTED A T [facility] [address] (BEAKER) (test code = [facility] [place] [place], 1538) [address]: Automotive Service Technician/Techni nory ID = [id number] for Rizwana Hair, [id number] 17:14:00 Test Item Value Reference Range Interpretation Comments ABO Grouping (test code = 2588) A Rh Factor (test code = 2589) NEG [facility] Center[id number] 16:16:00 Test Item Value Reference Range Interpretation Comments PROTIME (BEAKER) (test code = 14.3 seconds 11.9-14.2 H 759) INR (BEAKER) (test code = 370) 1.14 <=5.90 Effective 08/02/2018: PT Reference Range ChangeNew: 11.9-14.2 Previous: 11.7- 14.7RECOMMENDED COUMADIN/WARFARIN INR THERAPY RANGESSTANDARD DOSE: 2.0-3.0 Includes: PROPHYLAXIS for venous thrombosis, systemic embolization; TREATMENT for venous thrombosis and/or pulmonary embolus.HIGH RISK: Target INR is2.5-3.5 for patients wiht mechanical heart valves.Type and screen, [id number] 16:11:00 Test Item Value Reference Range Interpretation Comments ABO/RH AUTOMATED (BEAKER) (test A NEGATIVE code = 2260) Ab Scrn (test code = 890-4) NEGATIVE [facility] CenterBASIC [facility]OLIC [id number] 15:55:00 Test Item Value Reference Range Interpretation Comments SODIUM (BEAKER) 140 meq/L 136-145 (test code = 381) POTASSIUM (BEAKER) 4.2 meq/L 3.5-5.1 Specimen slightly (test code = 379) hemolyzed CHLORIDE (BEAKER) 106 meq/L 98-107 (test code = 382) CO2 (BEAKER) (test 24 meq/L 22-29 code = 355) BLOOD UREA NITROGEN 6 mg/dL 7-21 L (BEAKER) (test code = 354) CREATININE (BEAKER) 0.64 mg/dL 0.57-1.25 Specimen slightly (test code = 358) hemolyzed GLUCOSE RANDOM 73 mg/dL 70-105 (BEAKER) (test code = 652) CALCIUM (BEAKER) 8.6 mg/dL 8.4-10.2 (test code = 697) EGFR (BEAKER) (test 99 mL/min/1.73 ESTIMA MAIKEL GFR IS code = 1092) sq m NOT ACCURATE CREATININE CLEARANCE IN PREDICTING GLOMERULAR FILTRATION RATE . ESTIMATED GFR I S NOT APPLICABLE FOR DIALYSIS PATIEN TS. Automotive Service Technician ID - EDASICBC W/PLT COUNT & AUTO [id number] 15:38:00 Test Item Value Reference Range Interpretation Comments WHITE BLOOD CELL COUNT (BEAKER) 8.2 K/ L 3.5-10.5 (test code = 775) RED BLOOD CELL COUNT (BEAKER) 4.94 M/ L 3.93-5.22 (test code = 761) HEMOGLOBIN (BEAKER) (test code = 14.4 GM/DL 11.2-15.7 410) HEMATOCRIT (BEAKER) (test code = 44.8 % 34.1-44.9 411) MEAN CORPUSCULAR VOLUME (BEAKER) 90.7 fL 79.4-94.8 (test code = 753) MEAN CORPUSCULAR HEMOGLOBIN 29.1 pg 25.6-32.2 (BEAKER) (test code = 751) MEAN CORPUSCULAR HEMOGLOBIN CONC 32.1 GM/DL 32.2-35.5 L (BEAKER) (test code = 752) RED CELL DISTRIBUTION WIDTH 13.0 % 11.7-14.4 (BEAKER) (test code = 412) PLATELET COUNT (BEAKER) (test 165 K/CU MM 150-450 code = 756) MEAN PLATELET VOLUME (BEAKER) 11.6 fL 9.4-12.3 (test code = 754) NUCLEATED RED BLOOD CELLS 0 /100 WBC 0-0 (BEAKER) (test code = 413) NEUTROPHILS RELATIVE PERCENT 56 % (BEAKER) (test code = 429) LYMPHOCYTES RELATIVE PERCENT 33 % (BEAKER) (test code = 430) MONOCYTES RELATIVE PERCENT 10 % (BEAKER) (test code = 431) EOSINOPHILS RELATIVE PERCENT 2 % (BEAKER) (test code = 432) BASOPHILS RELATIVE PERCENT 1 % (BEAKER) (test code = 437) NEUTROPHILS ABSOLUTE COUNT 4.58 K/ L 1.56-6.13 (BEAKER) (test code = 670) LYMPHOCYTES ABSOLUTE COUNT 2.69 K/ L 1.18-3.74 (BEAKER) (test code = 414) MONOCYTES ABSOLUTE COUNT (BEAKER) 0.79 K/ L 0.24-0.36 H (test code = 415) EOSINOPHILS ABSOLUTE COUNT 0.12 K/ L 0.04-0.36 (BEAKER) (test code = 416) BASOPHILS ABSOLUTE COUNT (BEAKER) 0.05 K/ L 0.01-0.08 (test code = 417) IMMATURE GRANULOCYTES-RELATIVE 0 % 0-1 PERCENT (BEAKER) (test code = 2801) Coronavirus 2019 nCoV [id number] 20:52:00 Test Item Value Reference Range Interpretation Comments Coronavirus 2019 nCoV Negative Negative ID NOW COVID-19 assay Bedside (test code = perform ed on the ID NOW [id number]) Instrument mamta rapid molecular in vi tro diagnostic test utilizing aniso thermal nucleic acid amplification t echnology intendedfor the qualitative det ection of nucleic acid fr om waqYGXR-ZkP-2 v iral RNA in direct nasal , nasopharyngeal orthroat swabs and nasal , nasopharyngeal or throat swabseluted in viral transport media from individuals who aresuspected of COVID-19 by their health care provider. Resu lts are for the identif ication of SARS-CoV-2 R NA.For Use Under an Em ergency Use Authorizati on (EUA) Only Negative r esults do not preclude SA RS-CoV-2 infection andsh ould not be used as the sole basis for patie nt managementdecis ions. Negative result s must be combined with clinicalobserva tions, patient history , and epidemiological informati on. - CT ABD PELVIS [id number] 15:50:00 [facility] Ayde : 1970 Sex: F Patient Name: ARLENE RODRÍGUEZ Unit No: [id number] EXAMS: CPT CODE: [id number] CT ABD PELVIS W/CONT 94696 Reason: DIFFUSE PAIN, VOMITING EXAM: - CT ABD PELVIS W/CONT REASON FOR EXAM: DIFFUSE PAIN, VOMITING COMPARISON: None. Techniques: 5 mm axial images of CT abdomen and pelvis exam performed after administration 80 mL Isovue-300 IV contrast. Coronal and sagittal reformation images obtained. FINDINGS: CT abdomen: Dependent changes of lung bases identified. Heart size is normal. There is no pericardial effusion. Calcified plaques of aorta seen without aneurysm. Inferior vena cava is normal. There is prior cholecystectomy. Physiological dilation of common bile duct up to 1.5 cm in diameter seen. No calcified choledocholithiasis identified. Intrahepatic biliary ductal dilation also identified, most prominent at central portion. Wedge-shaped less enhancing area involving segment 7 of liver seen image 19 series 3. Pancreas, spleen and adrenal glands are normal. Kidneys are normal. Distal esophagus is normal. Previous gastric bypass surgery identified with some dilated small bowel loops between theanastomoses identified without evidence of bowel obstruction. Bowel wall thickening with adjacent inflammatory change involving small bowel loop just distal to the proximal anastomosis to the stomach identified. Appendix is normal. Diverticulosis of descending colon seen without adjacent inflammatory change. No enlarged retroperitoneal lymph node is seen. Endogastric hernia up to 2 cm in diameter with focal fat stranding or focal fluid collection identified. Umbilical hernia up to 2 cm in diameter with small amount of fluid within the hernia sac identified without bowel herniation. Degenerative changes of spine seen.Increased subcutaneous adipose tissue seen. CT pelvis: Vagina cuffis normal. Ovaries are not seen. Urinary bladder is normal. Isolated diverticulosis of sigmoid colon seen without adjacent inflammatory change. Moderate simple ascites at dependent portion of pelvis identified. Degenerative changes of SI joints, to lesser degree hip jointsidentified. Bilateral inguinal indirect fatty hernias up to 1 cm in diameter seen. Increasedsubcutaneous adipose tissue seen. Coronal and sagittal reformation images confirm above findings. IMPRESSION: [facility] NAME: ARLENE RODRÍGUEZ [address] [facility] PHYS: [id number] - Chaz [place] [address] : 1970 AGE: 49 SEX: F LOC: D.EDWARD PHONE #: [phone] EXAM DATE: 12/25/2019 STATUS: REG ER FAX #: RAD NO: DC Dt: PAGE 1 Signed Report (CONTINUED) Patient Name: ARLENE RODRÍGUEZ Unit No: [id number] EXAMS:CPT CODE: [id number] CT ABD PELVIS W/CONT 36439 <Continued> Reason: DIFFUSE PAIN, VOMITING Focal inflammation or enteritis involving smallbowel loop distal to the distal anastomosis the stomach identified. There may be associated ileus. No definitive perforation identified. Early contained dehiscence at proximal anastomosis between stomach and small intestine is difficult to exclude. Epigastric fatty hernia containing small amount of fluid or focal fat stranding due to inflammation seen. Umbilical fatty hernia containing small amount of ascites seen. Moderate ascites at dependent portion pelvis]. Likely physiological dilation of common bile duct identified without calcified choledocholithiasis seen. MRCP study may provide more information. Additional chronic findings as noted. at 1550 Reported and signed by: Ilsa Gilbert MD CC: Chaz Rodriguez MD; Taran Ellison NP Technologist: Ulises Keene CT; Esau Ghotra RT NMTrscrpt Dt/ (1550)t.SDR.[id number] Orig Print D/T: S: 12/25/2019 (1553) CTDI: DLP: [facility] NAME: ARLENE RODRÍGUEZ [address] [facility] PHYS: Chaz Carter [facility] [place] [address] : 1970 AGE: 49 SEX: F LOC: D.EDWARD PHONE #: [phone] EXAM DATE: 12/25/2019 STATUS: REG ER FAX #: RAD NO: DC Dt: PAGE 2 Signed ReportUA RFLX MICROSOPIC 2019-12-25 14:48:00 Test Item Value Reference Range Interpretation Comments UA COLOR (test code = COLU) Light-Yellow YELLOW UA APPEARANCE (test code = CLEAR CLEAR APPU) UA GLUCOSE DIPSTICK (test NORMAL mg/dL NEGATIVE code = DGLUU) UA BILIRUBIN DIPSTICK (test NEGATIVE NEGATIVE code = BILU) UA KETONE DIPSTICK (test code 60 mg/dL NEGATIVE A = KETU) UA SPECIFIC GRAVITY (test 1.016 1.001-1.035 N code = SGU) UA BLOOD DIPSTICK (test code NEGATIVE NEGATIVE = DEISY) UA PH DIPSTICK (test code = 6.5 5.5-7.0 N VIV) UA PROTEIN DIPSTICK (test NEGATIVE mg/dL NEGATIVE code = PROU) UA UROBILINOGEN DIPSTICK NORMAL mg/dL NORMAL (test code = URO) UA NITRITE DIPSTICK (test NEGATIVE NEGATIVE code = JO ANN) UA LEUKOCYTE ESTERASE NEGATIVE NEGATIVE DIPSTICK (test code = LEUU) UA COMMENT (test code = COMU) VOLUME 10-12 ML URINE SPECIMEN DESCRIPTION Clean Catch (test code = UASPEC) COMPREHENSIVE METABOLIC [id number] 13:47:00 Test Item Value Reference Range Interpretation Comments SODIUM (test code = 138 MMOL/L 133-145 N NA) POTASSIUM (test code = 3.7 MMOL/L 3.6-5.2 N K) CHLORIDE (test code = 103 MMOL/L 100-108 N CL) CARBON DIOXIDE (test 26 MMOL/L 22-32 N code = CO2) GLUCOSE (test code = 85 MG/DL 65-99 N Results of this assay GLU) method may be f alsely depressed orele vated if patient is t aking sulfasalazine. BLOOD UREA NITROGEN 5 MG/DL 6-20 L (test code = BUN) GLOMERULAR FILTRATION 107 58-135 N Report ing units: RATE (test code = GFR) mL/mi n/1.73m\S\2 (Modified MDRD Formula) CREATININE (test code 0.60 MG/DL 0.60-1.00 N = CREAT) TOTAL PROTEIN (test 7.4 G/DL 6.4-8.2 N code = PROT) ALBUMIN (test code = 3.8 G/DL 3.4-5.0 N ALB) GLOBULIN (test code = 3.6 G/DL 1.5-3.8 N GLOB) ALBUMIN/GLOBULIN RATIO 1.1 1.1-2.2 N (test code = A/G) CALCIUM (test code = 9.2 MG/DL 8.7-10.5 N CA) BILIRUBIN TOTAL (test 0.7 MG/DL 0.0-1.0 N code = BILT) SGOT/AST (test code = 33 Units/L 15-37 N Result s of this assay AST) method may be f alsely depressed orele vated if patient is t aking sulfasalazine. SGPT/ALT (test code = 35 Units/L 30-65 N Result s of this assay ALT) method may be f alsely depressed orele vated if patient is t aking sulfasalazine. ALKALINE PHOSPHATASE 99 Units/L 50-136 N TOTAL (test code = ALKP) [id number] 13:47:00 Test Item Value Reference Range Interpretation Comments LIPASE (test code = LIP) 61 Units/L 73-393 L CBC W/AUTO [id number] 13:31:00 Test Item Value Reference Range Interpretation Comments WHITE BLOOD CELL (test 12.42 x10 3/uL 4.80-10.80 H Res ults called to code = WBC) and read back Kamar FISCHER;1331, 12/25/19, D.LAB.SUE. RED BLOOD CELL (test 5.34 x10 6/uL 4.2-5.4 N code = RBC) HEMOGLOBIN (test code = 16.1 G/DL 12.0-16.0 H HGB) HEMATOCRIT (test code = 48.7 % 37-47 H HCT) MEAN CELL VOLUME (test 91.2 FL 81-99 N code = MCV) MEAN CELL HGB (test 30.1 PG 27-31 N code = MCH) MEAN CELL HGB 33.1 G/DL 33-37 N CONCENTRATION (test code = MCHC) RED CELL DISTRIBUTION 12.7 % 11.5-14.5 N WIDTH (test code = RDW) PLATELET COUNT (test 270 x10 3/uL 150-450 N code = PLT) MEAN PLATELET VOLUME 11.1 FL 7.4-10.4 H (test code = MPV) NEUTROPHIL % (test code 71.4 % 42-86 N = NT%) IMMATURE GRANULOCYTE % 0.2 % 0.0-2.0 N (test code = IG%) LYMPHOCYTE % (test code 20.9 % 24-44 L = LY%) MONOCYTE % (test code = 6.0 % 0.0-4.0 H MO%) EOSINOPHIL % (test code 1.1 % 0.0-2.7 N = EO%) BASOPHIL % (test code = 0.4 % 0.0-0.5 N BA%) NUCLEATED RBC % (test 0.0 % 0.0-0.0 N code = NRBC%) NEUTROPHIL # (test code 8.86 x10 3/uL 1.8-7.7 H = NT#) IMMATURE GRANULOCYTE # 0.02 x10 3/uL 0.00-0.03 N (test code = IG#) LYMPHOCYTE # (test code 2.60 x10 3/uL 1.0-4.8 N = LY#) MONOCYTE # (test code = 0.75 x10 3/uL 0.0-0.8 N MO#) EOSINOPHIL # (test code 0.14 x10 3/uL 0.0-0.5 N = EO#) BASOPHIL # (test code = 0.05 x10 3/uL 0.0-0.2 N BA#) NUCLEATED RBC # (test 0.0 X10 3/uL 0.0-0.2 N code = NRBC#)
[2020-10-24 23:21] LABS: Absolute Lymphocytes (CBC) 3.6 K/uL (0.7-4.9); Basophils % 0.7 % (0-1.3); Hematocrit 42.1 % (36.0-45.0); Lymphocytes % 40.8 % (15.3-44.8); MPV 10.1 fL (7.6-11.3); RBC Red Blood Cell Count 4.59 M/uL (3.86-4.86)
[2020-10-24] MEDS ORDERED: PANTOPRAZOLE 40 MG INJ ONE (23:25)
[2020-10-24] MEDS ORDERED: NA CHLORIDE 0.9% 100 ML ONE (23:25)
[2020-10-24] MEDS ORDERED: NA CHLORIDE 0.9% 250 ML ONE (23:27)
[2020-10-24 23:29] LABS: Urine Blood Negative (Negative); Urine Glucose Negative (Negative); Urine Protein Trace (Negative); Urine Specific Gravity >=1.030 (1.005-1.030)
[2020-10-24 23:40] LABS: ALT/SGPT 19 U/L (12-78); AST/SGOT 13 U/L (15-37); Albumin 3.2 g/dL (3.4-5.0); Alkaline Phosphatase 96 U/L (45-117); BUN Blood Urea Nitrogen 12 mg/dL (7-18); Bicarbonate 27 mmol/L (21-32); Bilirubin Direct < 0.1 mg/dL (0-0.2); Bilirubin Total 0.3 mg/dL (0.2-1.0); Glucose Level 92 mg/dL (74-106); Lipase 98 U/L (73-393); Potassium 3.4 mmol/L (3.5-5.1); Protein, Total 6.3 g/dL (6.4-8.2); Sodium Level 146 mmol/L (136-145)
[2020-10-25] MEDS ORDERED: MORPHINE 4 MG/ML SYR ONE (00:03)
[2020-10-25] MEDS ORDERED: ONDANSETRON 4 MG/2 ML VIAL ONE (00:03)
[2020-10-25 00:05] LABS: Urine Bacteria >50 /HPF (<20); Urine Mucus 2+ /HPF (NONE SEEN)
--- NOTE | 2020-10-25 01:09 | ER ---
Nurse's Notes [facility] Name: Carolyn Motley Age: 50 yrs Sex: Female : 1970 Arrival Date: 10/24/2020 Time: 22:19 Bed 6 Private MD: Diagnosis: Upper GI bleed;Abdominal pain Presentation: 10/24 22:20 Chief complaint: Patient states: Vomited 1/4 cup of bright red blood, vomiting x 3 kg days. Pt stated, " I have a gastric ulcer that has perforated two times before. " LLQ abdominal pain. Coronavirus screen: Client denies travel out of the [place] in the last 14 days. At this time, unable to obtain information related to travel outside the [place] Ebola Screen: Patient negative for fever greater than or equal to 101.5 degrees Fahrenheit, and additional compatible Ebola Virus Disease symptoms Patient denies exposure to infectious person. Patient denies travel to an Ebola-affected area in the 21 days before illness onset. Initial Sepsis Screen: Does the patient meet any 2 criteria? No. Patient's initial sepsis screen is negative. Does the patient have a suspected source of infection? No. Patient's initial sepsis screen is negative. Risk Assessment: Do you want to hurt yourself or someone else? Patient reports no desire to harm self or others. Onset of symptoms was October 21, 2020. 22:20 Method Of Arrival: EMS: [facility] kg 22:20 Acuity: MED 3 kg 22:30 Care prior to arrival: Medication(s) given: Reglan 10mg IV IV initiated. 20 GA, in the lp1 right forearm. Triage Assessment: 22:24 General: Appears in no apparent distress. Behavior is calm, cooperative, appropriate kg for age, quiet. Pain: Complains of pain in left lower quadrant. 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 LMP N/A - Hysterectomy kg Historical: - Allergies: 22:24 Byetta; kg 22:26 Hydrocodone-Acetaminophen; lp1 - Home Meds: 22:26 sucralfate 100 mg/mL Oral susp 10 mL three times a day [Active]; lp1 23:12 oxycodone 5mg PO tablet Q6h PRN [Active]; acarbose 25 mg Oral tab 1 tab 3 times per day lp1 [Active]; esomeprazole magnesium 40 mg oral cpDR 1 cap 2 times per day [Active]; - PMHx: 22:21 Diabetes - NIDDM; Myocardial infarction; COPD; Gasteric Ulcer and perforation; kg - PSHx: 22:21 Cholecystectomy; Total abdominal hysterectomy; Gastric Sleeve; Gastric clips; Neck sx; kg ankle sx; - Immunization history:: Adult Immunizations up to date. - Social history:: Smoking status: Patient reports the use of cigarette tobacco products, smokes one-half pack cigarettes per day. Screenin:11 Abuse screen: Denies threats or abuse. Denies injuries from another. Nutritional lp1 screening: No deficits noted. Tuberculosis screening: No symptoms or risk factors identified. Fall Risk None identified. Assessment: 10/25 02:40 Reassessment: Patient is alert, oriented x 3, equal unlabored respirations, skin lp1 warm/dry/pink. Patient states symptoms have improved. Vital Signs: 10/24 22:35 BP 119 / 88; Pulse 78; Resp 20; Temp 97.8(TE); Pulse Ox 99% on R/A; Pain 8/10; lp1 22:36 Weight 63.5 kg (R); Height 5 ft. 3 in. (160.02 cm) (R); Pain 9/10; kg 10/25 00:00 BP 111 / 74; Pulse 67; Resp 12; Pulse Ox 100% on R/A; Pain 6/10; lp1 01:00 BP 118 / 77; Pulse 67; Resp 13; Pulse Ox 100% on R/A; lp1 02:00 BP 140 / 78; Pulse 70; Resp 13; Pulse Ox 98% on R/A; Pain 10/10; lp1 10/24 22:36 Body Mass Index 24.80 (63.50 kg, 160.02 cm) kg ED Course: 10/24 22:15 Maintain EMS IV. Dressing intact. Good blood return noted. Site clean \\T\\ dry. Gauge \\T\\ lp 1 site: 20g R FA. 22:15 Initial lab(s) drawn, by me, sent to lab. T\\T\\S collected, blood band applied to patient. lp1 22:19 Patient arrived in ED. bp1 22:21 Triage completed. kg 22:24 Shruthi Meza, RN is Primary Nurse. lp1 22:24 Arm band placed on right wrist. kg 22:30 Patient has correct armband on for positive identification. Call light in reach. lp1 vehicle monitor technician on. Pulse ox on. NIBP on. 22:40 Artur Mcfarlane MD is Attending Physician. 7 10/25 00:04 CT Abd/Pelvis - IV Contrast Only In Process Unspecified. EDMS 00:16 Served as a merchandiser during rectal exam. lp1 01:08 Nadira Galvez MD is Hospitalizing Provider. 7 02:30 Patient admitted, IV remains in place. lp1 Administered Medications: 10/24 23:24 Drug: ProTONIX (pantoprazole) 80 mg Route: IVP; Site: right forearm; lp1 10/25 00:30 Follow up: Response: No adverse reaction lp1 10/24 23:24 Drug: ProTONIX (pantoprazole) 8 mg/hr Route: IV; Rate: 25 ml/hr; Site: right forearm; lp1 10/25 02:40 Follow up: IV Status: Infusion continued upon admission lp1 00:15 Drug: morphine 4 mg Route: IVP; Site: right forearm; lp1 01:43 Follow up: Response: No change in condition lp1 00:15 Drug: Zofran (Ondansetron) 4 mg Route: IVP; Site: right forearm; lp1 01:44 Follow up: Response: No adverse reaction lp1 00:15 Not Given (NS 1L bolus given by EMS, MD notified ): NS 0.9% 1000 ml IV at 1000 ml once lp1 01:43 Drug: morphine 2 mg Route: IVP; Site: right forearm; lp1 02:00 Follow up: Response: Pain is unchanged, physician notified lp1 02:06 Drug: Dilaudid (HYDROmorphone) 1 mg Route: IVP; Site: right forearm; lp1 02:40 Follow up: Response: Marked relief of symptoms; Pain is decreased lp1 Point of Care Testing: Guaiac: 00:16 Stool Guaiac: Negative; Stool Hemoccult Control: Pass; lp1 Intake: 01:00 IV: 1000ml (IV Fluid); Total: 1000ml. lp1 01:00 From EMS lp1 Outcome: 01:08 Decision to Hospitalize by Provider. 7 02:30 Admitted to ER Hold. Please see [facility] for further documentation. lp1 02:30 Condition: stable 02:30 Instructed on the need for admit. 07:25 Patient left the ED. lp1 Signatures: Dispatcher [employer] EDShruthi Duran RN RN lp1 Kelle Jack Maurice, MD MD 7 Scarlet Parra RN RN kg Corrections: (The following items were deleted from the chart) 10/24 23:14 23:12 PMHx: CVA; lp1 lp1 10/25 02:07 10/24 22:35 BP 119 / 88; Pulse 78bpm; Resp 20bpm; Pulse Ox 99% RA; Pain 8/10; lp1 lp1
--- NOTE | 2020-10-25 01:09 | EDPHYS ---
Physician Documentation [facility] Name: Carolyn Motley Age: 50 yrs Sex: Female : 1970 Arrival Date: 10/24/2020 Time: 22:19 Bed 6 Private MD: ED Physician Artur Mcfarlane HPI: 10/24 22:40 This 50 yrs old Female presents to ER via EMS with complaints of Vomiting - mh7 blood. 22:40 The patient presents to the emergency department with nausea, that is moderate, mh7 vomiting, that is intermittent, described as bright red blood, clear fluid, abdominal pain, of the epigastric area and left lower quadrant, described as intermittent, vague,\E\ waxing and waning, and does not radiate. Onset: The symptoms/episode began/occurred 3 day(s) ago. Possible causes: unknown. The symptoms are aggravated by nothing. The symptoms are alleviated by nothing. Associated signs and symptoms: Pertinent positives: Pertinent negatives: anorexia, belching, constipation, diarrhea, dysuria, fever, flatulence, hematuria, vaginal discharge. Severity of symptoms: At their worst the symptoms were moderate today, in the emergency department the symptoms have improved moderately. The patient has experienced similar episodes in the past, a few times. Patient reports abdominal pain, nausea, vomiting intermittently for 3 days. She states that she had one episode of vomiting blood this evening.. 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 - Hysterectomy kg Historical: - Allergies: 22:24 Byetta; kg 22:26 Hydrocodone-Acetaminophen; lp1 - Home Meds: 22:26 sucralfate 100 mg/mL Oral susp 10 mL three times a day [Active]; lp1 23:12 oxycodone 5mg PO tablet Q6h PRN [Active]; acarbose 25 mg Oral tab 1 tab 3 times per day lp1 [Active]; esomeprazole magnesium 40 mg oral cpDR 1 cap 2 times per day [Active]; - PMHx: 22:21 Diabetes - NIDDM; Myocardial infarction; COPD; Gasteric Ulcer and perforation; kg - PSHx: 22:21 Cholecystectomy; Total abdominal hysterectomy; Gastric Sleeve; Gastric clips; Neck sx; kg ankle sx; - Immunization history:: Adult Immunizations up to date. - Social history:: Smoking status: Patient reports the use of cigarette tobacco products, smokes one-half pack cigarettes per day. ROS: 22:40 Constitutional: Negative for fever, chills, and weight loss, Eyes: Negative for injury, mh7 pain, redness, and discharge, ENT: Negative for injury, pain, and discharge, Neck: Negative for injury, pain, and swelling, Cardiovascular: Negative for chest pain, palpitations, and edema, Respiratory: Negative for shortness of breath, cough, wheezing, and pleuritic chest pain, Back: Negative for injury and pain, : Negative for injury, bleeding, discharge, and swelling, MS/Extremity: Negative for injury and deformity, Skin: Negative for injury, rash, and discoloration, Neuro: Negative for headache, weakness, numbness, tingling, and seizure, Psych: Negative for depression, anxiety, suicide ideation, homicidal ideation, and hallucinations, Allergy/Immunology: Negative for hives, rash, and allergies, Endocrine: Negative for neck swelling, polydipsia, polyuria, polyphagia, and marked weight changes, Hematologic/Lymphatic: Negative for swollen nodes, abnormal bleeding, and unusual bruising. Exam: 22:40 Constitutional: This is a well developed, well nourished patient who is awake, alert, mh7 and in no acute distress. Head/Face: Normocephalic, atraumatic. Eyes: Pupils equal round and reactive to light, extra-ocular motions intact. Lids and lashes normal. Conjunctiva and sclera are non-icteric and not injected. Cornea within normal limits. Periorbital areas with no swelling, redness, or edema. Neck: Trachea midline, no thyromegaly or masses palpated, and no cervical lymphadenopathy. Supple, full range of motion without nuchal rigidity, or vertebral point tenderness. No Meningismus. Chest/axilla: Normal chest wall appearance and motion. Nontender with no deformity. No lesions are appreciated. Cardiovascular: Regular rate and rhythm with a normal S1 and S2. No gallops, murmurs, or rubs. Normal PMI, no JVD. No pulse deficits. Respiratory: Lungs have equal breath sounds bilaterally, clear to auscultation and percussion. No rales, rhonchi or wheezes noted. No increased work of breathing, no retractions or nasal flaring. 22:40 Back: No spinal tenderness. No costovertebral tenderness. Full range of motion. Skin: Warm, dry with normal turgor. Normal color with no rashes, no lesions, and no evidence of cellulitis. MS/ Extremity: Pulses equal, no cyanosis. Neurovascular intact. Full, normal range of motion. Neuro: Awake and alert, GCS 15, oriented to person, place, time, and situation. Cranial nerves II-XII grossly intact. Motor strength 5/5 in all extremities. Sensory grossly intact. Cerebellar exam normal. Normal gait. Psych: Awake, alert, with orientation to person, place and time. Behavior, mood, and affect are within normal limits. 22:40 Abdomen/GI: Inspection: abdomen appears normal, Bowel sounds: normal, in all quadrants, Palpation: mild abdominal tenderness, in the epigastric area and left lower quadrant, mass, is not appreciated, rebound tenderness, is not appreciated, voluntary guarding, is not appreciated, involuntary guarding, is not appreciated, no appreciated organomegaly, Indicators: McBurney's point is not tender, Rizvi's sign is negative, Rovsing's sign is negative, Obturator sign is negative, Psoas sign is negative, Liver: no appreciated palpable abnormalities, Hernia: not appreciated. 10/25 00:18 Abdomen/GI: Rectal exam: rectal tone normal, Stool: brown, guaiac negative, mh7 hemorrhoid(s), are not appreciated, mass, is not appreciated, swelling, is not appreciated, tenderness, is not appreciated, fecal impaction, is not appreciated, the exam is chaperoned by the nurse. Vital Signs: 10/24 22:35 BP 119 / 88; Pulse 78; Resp 20; Temp 97.8(TE); Pulse Ox 99% on R/A; Pain 8/10; lp1 22:36 Weight 63.5 kg (R); Height 5 ft. 3 in. (160.02 cm) (R); Pain 9/10; kg 10/25 00:00 BP 111 / 74; Pulse 67; Resp 12; Pulse Ox 100% on R/A; Pain 6/10; lp1 01:00 BP 118 / 77; Pulse 67; Resp 13; Pulse Ox 100% on R/A; lp1 02:00 BP 140 / 78; Pulse 70; Resp 13; Pulse Ox 98% on R/A; Pain 10/10; lp1 10/24 22:36 Body Mass Index 24.80 (63.50 kg, 160.02 cm) kg MDM: 01:06 Differential diagnosis: Nonspecific abd pain, gastritis, cholecystitis, pancreatitis, mh7 diverticulitis, Ulcer disease, GI bleed. Data reviewed: vital signs, nurses notes, lab test result(s), CBC, electrolytes, urinalysis, EKG, radiologic studies, CT scan. Data interpreted: Pulse oximetry: on room air is 99 %. Interpretation: normal. Counseling: I had a detailed discussion with the patient and/or guardian regarding: the historical points, exam findings, and any diagnostic results supporting the discharge/admit diagnosis, lab results, radiology results, the need for further work-up and treatment in the hospital. Response to treatment: the patient's symptoms have markedly improved after treatment. Physician consultation: Benny Cortes MD was called at 00:45. 01:08 Patient medically screened. [facility] 10/24 22:52 Order name: Basic Metabolic Panel [facility] 10/24 22:52 Order name: CBC with Diff; Complete Time: 23:31 [facility] 10/24 22:52 Order name: Hepatic Function; Complete Time: 23:45 [facility] 10/24 22:52 Order name: Lipase; Complete Time: 23:45 [facility] 10/24 22:52 Order name: Type And Screen; Complete Time: 00:18 [facility] 10/24 22:53 Order name: Basic Metabolic Panel; Complete Time: 23:45 [facility] 10/24 23:11 Order name: Protime (+inr); Complete Time: 23:31 [facility] 10/24 23:11 Order name: Ptt, Activated; Complete Time: 23:31 [facility] 10/24 23:29 Order name: Urine Dipstick-Ancillary; Complete Time: 23:31 [facility] 10/24 23:32 Order name: Urine Microscopic Only [facility] 10/24 23:32 Order name: Urine Microscopic Only [facility] 10/25 00:12 Order name: Urine Culture [facility] 10/25 01:12 Order name: SARS-COV-2 RT PCR [facility] 10/24 22:52 Order name: IV Saline Lock; Complete Time: 23:23 [facility] 10/24 22:52 Order name: Labs collected and sent; Complete Time: 23:23 [facility] 10/24 22:52 Order name: EKG - Nurse/Tech; Complete Time: 23:35 [facility] 10/24 22:52 Order name: Urine Dipstick-Ancillary (obtain specimen); Complete Time: 23:35 [facility] 10/24 23:11 Order name: CT Abd/Pelvis - IV Contrast Only [facility] 10/25 05:49 Order name: CBC with Automated Diff EDCT 10/25 06:30 Order name: Comprehensive Metabolic Panel EDMS 10/25 06:30 Order name: Magnesium EDMS Administered Medications: 10/24 23:24 Drug: ProTONIX (pantoprazole) 80 mg Route: IVP; Site: right forearm; lp1 10/25 00:30 Follow up: Response: No adverse reaction [facility] 10/24 23:24 Drug: ProTONIX (pantoprazole) 8 mg/hr Route: IV; Rate: 25 ml/hr; Site: right forearm; lp1 10/25 02:40 Follow up: IV Status: Infusion continued upon admission lp1 00:15 Drug: morphine 4 mg Route: IVP; Site: right forearm; lp1 01:43 Follow up: Response: No change in condition lp1 00:15 Drug: Zofran (Ondansetron) 4 mg Route: IVP; Site: right forearm; lp1 01:44 Follow up: Response: No adverse reaction lp1 00:15 Not Given (NS 1L bolus given by EMS, MD notified ): NS 0.9% 1000 ml IV at 1000 ml once lp1 01:43 Drug: morphine 2 mg Route: IVP; Site: right forearm; lp1 02:00 Follow up: Response: Pain is unchanged, physician notified lp1 02:06 Drug: Dilaudid (HYDROmorphone) 1 mg Route: IVP; Site: right forearm; lp1 02:40 Follow up: Response: Marked relief of symptoms; Pain is decreased lp1 Point of Care Testing: Guaiac: 00:16 Stool Guaiac: Negative; Stool Hemoccult Control: Pass; lp1 Disposition Summary: 10/25/20 01:08 Hospitalization Ordered Hospitalization Status: Inpatient Admission [facility] Provider: Nadira Galvez Condition: Stable [facility] Problem: an acute exacerbation [facility] Symptoms: have improved [facility] Bed/Room Type: Standard [facility] Location: [facility] ER HOLD(10/25/20 01:40) cg Room Assignment: [facility]-(10/25/20 01:40) cg Diagnosis - Upper GI bleed 7 - Abdominal pain [facility] Forms: - Medication Reconciliation Form [facility] - SBAR form [facility] Signatures: Dispatcher [employer] [facility] Shruthi Meza RN RN 1 Misael Lemus, MAIL READER-C MAIL READER-Cla1 Zelda Rowe RN RN Artur Mcfarlane MD MD [facility] Scarlet Parra RN RN kg Corrections: (The following items were deleted from the chart) 10/24 23:14 23:12 PMHx: CVA; lp1 1 23:35 23:11 Urine Test ordered. [place] [id number] 10/25 00:16 10/24 23:41 CORONAVIRUS+MR.LAB.BRZ ordered. [facility] 10/25 01:40 01:08 Telemetry/MedSurg (Inpatient) [facility] 01:40 01:08 [facility]
[2020-10-25] MEDS ORDERED: MORPHINE 2 MG/ML SYR ONE (02:02)
--- NOTE | 2020-10-25 02:22 | P.HP ---
Certification for Inpatient Patient admitted to: Observation With expected LOS: <2 Midnights Patient will require the following post-hospital care: None Practitioner: I am a practitioner with admitting privileges, knowledge of patient current condition, hospital course, and medical plan of care. Services: Services provided to patient in accordance with Admission requirements found in Title 42 Section 412.3 of the Code of Federal Regulations Patient History Date of Service: 10/25/20 Primary Care Provider: Out of town Reason for admission: Hematemesis History of Present Illness: 50-year-old female with history of GERD, gastric ulcers, peptic ulcer perforation, diabetes mellitus type 2 presents emergency department for hematemesis, abdominal pain. Patient reports vomiting over the course of the last 2 days with one episode of hematemesis this evening. Patient reports that last year she had a perforated peptic ulcer, she was transported to [facility] where she had endoscopy and was treated with PPI therapy. Approximately 1 month ago at [facility] patient had a repair of her contained perforated peptic ulcer. Patient was evaluated here in the emergency department, labs were significant for hemoglobin 14.2 hematocrit 42.1 potassium 3.4 sodium 146 chloride 114 urine with greater than 50 bacteria but also 10-20 squamous cells, patient denies any urinary symptoms, patient has not had additional episodes of hematemesis at this time. Patient currently on PPI drip. Gastroenterology services available at this time will admit for further evaluation and management. Allergies No Known Allergies Allergy (Verified 12/06/11 09:41) - Past Medical/Surgical History -: Diabetes mellitus type 2 -: GERD -: Peptic ulcer with previous contained perforation status post repair -: Gastric bypass -: Peptic ulcer contained perforation repair -: Cholecystectomy -: Tonsillectomy -: Hysterectomy Psychosocial/ Personal History: Lives at home with family, disabled. - Family History Father -: Heart disease, Diabetes Mother -: Heart disease, Diabetes - Social History Smoking Status: Current every day smoker Counseled patient to stop smoking for: less than 10 minutes Smoking therapy provided: No Alcohol use: No CD- Drugs: No Caffeine use: Yes Place of Residence: Home Review of Systems 10-point ROS is otherwise unremarkable Gastrointestinal: Nausea, Vomiting, Abdominal Pain, Hematochezia Physical Examination - Physical Exam General: Alert, In no apparent distress, Oriented x3 HEENT: Atraumatic, PERRLA, Mucous membr. moist/pink, EOMI, Sclerae nonicteric Neck: Supple, 2+ carotid pulse no bruit, No LAD, Without JVD or thyroid abnormality Respiratory: Clear to auscultation bilaterally, Normal air movement Cardiovascular: Regular rate/rhythm, Normal S1 S2 Capillary refill: <2 Seconds Gastrointestinal: Normal bowel sounds, No tenderness Musculoskeletal: No tenderness Integumentary: No rashes Neurological: Normal gait, Normal speech, Normal strength at 5/5 x4 extr, Normal tone, Normal affect - Studies Laboratory Data (last 24 hrs) 10/24/20 22:15: PT 11.5, INR 1.00, APTT 31.9 10/24/20 22:15: WBC 8.90, Hgb 14.2, Hct 42.1, Plt Count 161 10/24/20 22:15: Sodium 146 H, Potassium 3.4 L, BUN 12, Creatinine 0.62, Glucose 92, Total Bilirubin 0.3, AST 13 L, ALT 19, Alkaline Phosphatase 96, Lipase 98 Assessment and Plan - Plan Assessment: Hematemesis history of peptic ulcer disease, history of contained perforated peptic ulcer status post repair Diabetes mellitus type 2 Plan: Hematemesis history of peptic ulcer disease, history of contained perforated peptic ulcer status post repair: Continue with PPI drip, gastroenterology consulted. Patient with only one episode of hematemesis hemoglobin 14 at this time, will recheck hemoglobin in the morning. N.p.o. in case EGD is needed. CT without evidence of perforation/contained perforation. As needed pain medications, antiemetics. Appreciate further input of gastroenterology. Diabetes mellitus type 2: AC at bedtime Accu-Chek, sliding scale insulin therapy. DVT PPX: SCD Code status: Full Discharge Plan: Home Plan to discharge in: 24 Hours - Advance Directives Does patient have a Living Will: No Does patient have a Durable POA for Healthcare: No - Code Status/Comfort Care Code Status Assessed: Yes (Full code) Critical Care: No Time Spent Managing Pts Care (In Minutes): 55
[2020-10-25] MEDS ORDERED: HYDROMORPHONE HCL 1 MG/ML INJ ONE (02:26)
[2020-10-25] MEDS ORDERED: NACHLORIDE 0.45% 1,000 ML IV SCH (03:31)
[2020-10-25] MEDS ORDERED: HYDROMORPHONE HCL 1 MG/ML INJ IV PRN (03:31)
[2020-10-25] MEDS ORDERED: ONDANSETRON 4 MG/2 ML VIAL IV PRN (03:31)
[2020-10-25] MEDS ORDERED: PANTOPRAZOLE INJ 80 MG in NA CHLORIDE 0.9% 250 ML IV SCH (03:31)
[2020-10-25] MEDS ORDERED: NA CHLORIDE 0.9% IV SCH (04:00)
[2020-10-25] MEDS ORDERED: PANTOPRAZOLE IV SCH (04:00)
[2020-10-25] MEDS ORDERED: NACHLORIDE 0.45% 1,000 ML IV ONE (04:25)
[2020-10-25 05:48] LABS: Basophils % 0.4 % (0-1.3); Hematocrit 39.1 % (36.0-45.0); Lymphocytes % 32.1 % (15.3-44.8); MPV 9.5 fL (7.6-11.3); RBC Red Blood Cell Count 4.28 M/uL (3.86-4.86)
[2020-10-25 05:50] VITALS: BP 90/69; TEMP 97
[2020-10-25 06:25] LABS: ALT/SGPT 114 U/L (12-78); AST/SGOT 207 U/L (15-37); Albumin 2.9 g/dL (3.4-5.0); Alkaline Phosphatase 120 U/L (45-117); BUN Blood Urea Nitrogen 11 mg/dL (7-18); Bicarbonate 29 mmol/L (21-32); Bilirubin Total 0.4 mg/dL (0.2-1.0); Glucose Level 89 mg/dL (74-106); Potassium 3.8 mmol/L (3.5-5.1); Protein, Total 5.6 g/dL (6.4-8.2); Sodium Level 147 mmol/L (136-145)
[2020-10-25 06:54] VITALS: O2SAT 97; BMI 24.7
[2020-10-25] MEDS ORDERED: INSULIN -REGULAR HUMAN 50 UNIT/0.5 ML ML SQ SCH (07:30)
--- NOTE | 2020-10-27 11:22 | RAD REPORT ---
EXAM DESCRIPTION: CT - Abdomen Pelvis W Contrast - 10/25/2020 6:37 am CLINICAL HISTORY: 50 years, Female, Abd pain;GI bleed COMPARISON: 02/03/2020 TECHNIQUE: Contrast-enhanced images of the abdomen and pelvis were performed utilizing 2 mm slice th ickness at 2 mm interval reconstruction from the lung bases to the ischial tuberosities after the adm inistration of IV contrast. In addition multiplanar reformats in the coronal and sagittal plane were obtained and reviewed. This exam was performed according to our departmental dose-optimization protocol, which includes auto mated exposure control, adjustment of the mA and/or kV according to patient size and/or use of iterat preston reconstruction technique. FINDINGS: The lung bases demonstrate to be clear. The liver, pancreas, spleen and adrenal glands demonstrate to be unremarkable, no focal lesions are n oted. There is a status post cholecystectomy. There is prominence of the central intrahepatic biliary system. There is prominence of the common susie e duct measuring 13.9 mm. No significant filling defects The kidneys demonstrate normal uptake of contrast media with no evidence for hydronephrosis. The unopacified stomach demonstrated presence of gastric bypass jejunostomy with no complicating feat ures. The small bowel and large bowel demonstrate to be within normal limits. There is no evidence for bowel dilatation/or free air. Fecal residue throughout the large bowel could suggest the possibil ity of mild fecal stasis. Surgical suture row within the right lower quadrant could suggest the possi bility of previous appendectomy. The urinary bladder was partially distended with no gross abnormalities. The uterus is absent. Ther e are no adnexal masses. The aorta demonstrate to be normal. There is no retroperitoneal lymphade nopathy. There is no evidence for ascites. The rest of the soft tissue and bony structures are within normal limits. IMPRESSION: Status post cholecystectomy with prominence of the central intrahepatic biliary system a nd prominence of the common bile duct measuring 13.9 mm. Correlate with liver function test. Status post gastric bypass jejunostomy with no complicating features. Fecal residue throughout the large bowel could suggest the possibility of mild fecal stasis. Status post hysterectomy. Electronically signed by: Jeffrey Cheek MD 10/25/2020 12:25 AM CDT Due to temporary technical issues with the PACS/Fluency reporting system, reports are being signed by the in house radiologist without review as a courtesy to ensure prompt reporting. The interpreting r adiologist is fully responsible for the content of the report.
== END 2020-10-25 07:25 | disposition left against medical advice (07) ==
LOC: ER 22:13 → ERHOLD 10-25 01:19
PROVIDERS: ADMIT Hospitalist; ATTEND Hospitalist
DX: K92.0 Hematemesis (principal); R10.9 Unspecified abdominal pain; E11.9 Type 2 diabetes mellitus without complications; K21.9 Gastro-esophageal reflux disease without esophagitis; Z87.11 Personal history of peptic ulcer disease; J44.9 Chronic obstructive pulmonary disease, unspecified; I25.2 Old myocardial infarction; F17.210 Nicotine dependence, cigarettes, uncomplicated; Z71.6 Tobacco abuse counseling; Z20.822 Contact with and (suspected) exposure to COVID-19; Z98.84 Bariatric surgery status; Z98.890 Other specified postprocedural states; Z90.49 Acquired absence of other specified parts of digestive tract; Z90.710 Acquired absence of both cervix and uterus; Z88.6 Allergy status to analgesic agent; Z88.8 Allergy status to other drugs, medicaments and biological substances; Z82.49 Family history of ischemic heart disease and other diseases of the circulatory system; Z83.3 Family history of diabetes mellitus
CPT/HCPCS: 96365; 93005; 87088; 85025 ×2; 87086; 80048; 36415; 86900; 83735; 86850; 85610; 86901; 80076; 85730; 83690; 80053; 74177; 96375; 99285; 96366; U0003; Q9967; C9113; J2270; J1170; J7050; G0378 ×2; 81003; 81015

== ENCOUNTER 2024-07-09 18:48 | Emergency (ER) | payer OTHER ==
--- NOTE | 2024-07-09 19:24 | ER ---
Nurse's Notes [facility] Name: Carolyn Motley Age: 54 yrs Sex: Female : 1970 Arrival Date: 07/09/2024 Time: 18:48 Bed 12 Private MD: Diagnosis: Encounter for removal of sutures Presentation: 07/09 19:10 Chief complaint: Patient states: I need sutures removed from my left ear lob that are ha1 due to be remove today. 19:10 Coronavirus screen: Client denies travel out of the [place] in the last 14 days. Ebola ha1 Screen: No symptoms or risks identified at this time. Initial Sepsis Screen: Does the patient meet any 2 criteria? No. Patient's initial sepsis screen is negative. Does the patient have a suspected source of infection? No. Patient's initial sepsis screen is negative. Risk Assessment: Do you want to hurt yourself or someone else? Patient reports no desire to harm self or others. Onset of symptoms was July 09, 2024. 19:10 Method Of Arrival: Ambulatory ha1 19:10 Acuity: MED 4 ha1 Triage Assessment: 19:19 General: Appears comfortable, Behavior is calm, cooperative. Pain: Denies pain. EENT: ha1 Reports suture removal from left ear . Neuro: Level of Consciousness is awake, alert, obeys commands, Oriented to person, place, time, situation. Cardiovascular: Patient's skin is warm and dry. Respiratory: Airway is patent Respiratory effort is even, unlabored, Respiratory pattern is regular, symmetrical. GI: No signs and/or symptoms were reported involving the gastrointestinal system. Abdomen is flat, non-distended. Historical: - Allergies: 19:19 Byetta; ha1 19:19 Hydrocodone-Acetaminophen; ha1 - PMHx: 19:19 COPD; Diabetes - NIDDM; Gasteric Ulcer and perforation; Myocardial infarction; ha1 - PSHx: 19:19 ankle SX; Cholecystectomy; Gastric clips; gastric sleeve; Neck sx; Total abdominal ha1 hysterectomy; - Immunization history:: Adult Immunizations up to date. - Infectious Disease History:: Denies. - Social history:: Smoking status: Patient reports the use of cigarette tobacco products, smokes one-half pack cigarettes per day. Screenin:21 Abuse screen: Denies threats or abuse. Denies injuries from another. Nutritional ha1 screening: No deficits noted. Tuberculosis screening: No symptoms or risk factors identified. 19:22 [facility] ED Fall Risk Assessment (Adult) History of falling in the last 3 months, dd2 including since admission No falls in past 3 months (0 pts) Confusion or Disorientation No (0 pts) Intoxicated or Sedated No (0 pts) Impaired Gait No (0 pts) Mobility Assist Device Used No (0 pt) Altered Elimination No (0 pt) Score/Fall Risk Level 0 - 2 = Low Risk Oriented to surroundings, Maintained a safe environment, Educated pt \T\ family on fall prevention, incl call for assistance when getting out of bed, Assessed \T\ reinforced patient's understanding of fall precautions, Hourly rounding (assess needs \T\ fall precautionary measures) done. Assessment: 19:22 General: Appears in no apparent distress. comfortable, Behavior is calm, cooperative, dd2 appropriate for age. Pain: Denies pain. Neuro: No deficits noted. Level of Consciousness is awake, alert, obeys commands, Oriented to person, place, time, situation, Appropriate for age. Cardiovascular: No deficits noted. Respiratory: No deficits noted. Airway is patent Respiratory effort is even, unlabored, Respiratory pattern is regular, symmetrical. GI: No deficits noted. No signs and/or symptoms were reported involving the gastrointestinal system. : No deficits noted. No signs and/or symptoms were reported regarding the genitourinary system. EENT: No deficits noted. No signs and/or symptoms were reported regarding the EENT system. Derm: SUTURES TO LT EARLOBE. Musculoskeletal: No deficits noted. No signs and/or symptoms reported regarding the musculoskeletal system. Vital Signs: 19:10 BP 168 / 90; Pulse 87; Resp 18 S; Temp 98.1; Pulse Ox 100% on R/A; Weight 70.31 kg; ha1 Height 5 ft. 3 in. ; Pain 0/10; 19:26 BP 157 / 86; Pulse 84; Resp 16; Pulse Ox 100% ; dd2 19:10 Body Mass Index 27.46 (70.31 kg, 160.02 cm) ha1 19:10 Pain Scale: Adult ha1 Duke Coma Score: 19:22 Eye Response: spontaneous(4). Motor Response: obeys commands(6). Verbal Response: dd2 oriented(5). Total: 15. ED Course: 18:59 Patient arrived in ED. cj3 19:00 Nina Parks PA[facility]C is [facility]. sb4 19:00 Nicolas Benitez MD is Attending Physician. sb4 19:17 TERESITA QUINTANA, RN is Primary Nurse. dd2 19:19 Triage completed. ha1 19:22 Patient has correct armband on for positive identification. Bed in low position. Call dd2 light in reach. Side rails up X 1. Client placed on continuous cardiac and pulse oximetry monitoring. NIBP monitoring applied. Door closed. Noise minimized. Pillow given. Verbal reassurance given. 19:22 No provider procedures requiring assistance completed. Patient did not have IV access dd2 during this emergency room visit. Patient maintains SpO2 saturation greater than 95% on room air. 19:27 Provided Education on: D/C EDUCATION. dd2 Administered Medications: No medications were administered Medication: 19:22 VIS not applicable for this client. dd2 Outcome: 19:23 Discharge ordered by MD. sb4 19:27 Discharged to home ambulatory, dd2 19:27 Condition: stable 19:27 Discharge instructions given to patient, Instructed on discharge instructions, follow up and referral plans. Demonstrated understanding of instructions, follow-up care, 19:28 Patient left the ED. dd2 Signatures: Nancy Stevenson RN RN ha1 Nina Parks PA-C PA-C sb4 TERESITA QUINTANA, RN RN dd2 Sandra Rodriguez cj3
--- NOTE | 2024-07-09 19:24 | EDPHYS ---
Physician Documentation [facility] Name: Carolyn Motley Age: 54 yrs Sex: Female : 1970 Arrival Date: 07/09/2024 Time: 18:48 Bed 12 Private MD: ED Physician Nicolas Benitez HPI: 07/09 19:29 This 54 yrs old Female presents to ER via Ambulatory with complaints of Suture Removal. sb4 19:29 The patient has sutures on the left ear lobe. Previous treatment: The patient was sb4 initially treated 7 day(s) ago, the care was rendered at the patient's primary care provider's office, Treatment type: The patient's original treatment included sutures, Outpatient prescription(s): The patient was given prescription(s) for nothing, Previous recheck: the patient has not been checked since the original treatment. Sutures/roberth progress: The patient has no c/o's. The wound is well-healing with no redness, swelling, discharge, or dehiscence reported. 19:31 Patient had labioplasty done with plastic surgeon in [facility] and [facility] 1 week ago. She sb4 had to emergently fly down here the day after because her mother was in critical condition. Was supposed to have her sutures removed today but is still here with her mother. Called her plastic surgeon who told her to go to the nearest ED to have them removed.. Historical: - Allergies: 19:19 Byetta; ha1 19:19 Hydrocodone-Acetaminophen; ha1 - PMHx: 19:19 COPD; Diabetes - NIDDM; Gasteric Ulcer and perforation; Myocardial infarction; ha1 - PSHx: 19:19 ankle SX; Cholecystectomy; Gastric clips; gastric sleeve; Neck sx; Total abdominal ha1 hysterectomy; - Immunization history:: Adult Immunizations up to date. - Infectious Disease History:: Denies. - Social history:: Smoking status: Patient reports the use of cigarette tobacco products, smokes one-half pack cigarettes per day. ROS: 19:29 Constitutional: Negative for fever, chills, and weight loss, sb4 19:29 Skin: Positive for per HPI, 19:29 All other systems are negative, Exam: 19:29 Constitutional: This is a well developed, well nourished patient who is awake, alert, sb4 and in no acute distress. Head/Face: Normocephalic, atraumatic. Eyes: Extra-ocular motions intact. Periorbital areas with no swelling, redness, or edema. ENT: Mucous membranes moist. 19:29 Skin: Wound recheck: Suture laceration closure: the wound is healing well, the edges are well approximated, no evidence of dehiscence, no drainage, no erythema, no swelling, Vital Signs: 19:10 BP 168 / 90; Pulse 87; Resp 18 S; Temp 98.1; Pulse Ox 100% on R/A; Weight 70.31 kg; ha1 Height 5 ft. 3 in. ; Pain 0/10; 19:26 BP 157 / 86; Pulse 84; Resp 16; Pulse Ox 100% ; dd2 19:10 Body Mass Index 27.46 (70.31 kg, 160.02 cm) ha1 19:10 Pain Scale: Adult ha1 Duke Coma Score: 19:22 Eye Response: spontaneous(4). Motor Response: obeys commands(6). Verbal Response: dd2 oriented(5). Total: 15. Procedures: 19:29 Suture/Staple removal: Removed 5 sutures, from left ear lobe, site appears well healed, sb4 dressed with Neosporin, Patient tolerated well. MDM: 19:03 Medical Screening Exam initiated sb4 19:31 Data reviewed: vital signs, nurses notes, and as a result, I will discharge patient. sb4 Counseling: I had a detailed discussion with the patient and/or guardian regarding the historical points, exam findings, and any diagnostic results supporting the discharge/admit diagnosis, the need for outpatient follow up, a plastic surgeon, to return to the emergency department if symptoms worsen or persist or if there are any questions or concerns that arise at home. Administered Medications: No medications were administered Disposition Summary: 07/09/24 19:23 Discharge Ordered Notes: Location: Home sb4 Problem: new sb4 Symptoms: have improved sb4 Condition: Stable sb4 Diagnosis - Encounter for removal of sutures sb4 Followup: sb4 - With: Private Physician - When: 1 week - Reason: Recheck today's complaints, Re-evaluation by your physician Discharge Instructions: - Discharge Summary Sheet sb4 - Suture Removal, Care After sb4 Forms: - Medication Reconciliation Form sb4 - Antibiotic Education sb4 - Prescription Opioid Use sb4 - Patient Portal Instructions sb4 - Leadership Thank You Letter sb4 Signatures: Nancy Stevenson, RN RN ha1 Nina Parks PA-C PA-C sb4
[2024-07-10 02:18] VITALS: TEMP 98.1; O2SAT 100
[2024-07-10 02:19] VITALS: BP 157/86
== END 2024-07-09 19:28 | disposition home or self-care (01) ==
LOC: ER 18:48
DX: Z48.02 Encounter for removal of sutures (principal)
CPT/HCPCS: 99283